=== PATIENT | female | born 1990 | race Caucasian/White ===

== ENCOUNTER 2025-01-05 18:03 | Outpatient (CLI) | payer MEDICAID, SELFPAY | END 2025-01-05 18:04 | disposition home or self-care (01) | LOC: AMB 01-09 15:07 | PROVIDERS: Visit Provider Family Medicine | DX: R07.89 Other chest pain (principal) | CPT/HCPCS: A0425; A0427 ==

== ENCOUNTER 2025-01-05 18:35 | Emergency (ER) | payer MEDICAID, SELFPAY ==
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
--- OUTSIDE RECORDS SUMMARY | 2024-12-11 13:53 | XMS_ITS | Encounter Summary ---
Author Organization [facility] Address [address] [place] [address] Care Team Providers Care Cold Roll Inspector Name Role Phone Preeti Samuel NP Primary Care Provider [phone] Preeti Samuel NP Unavailable Quynh Guerrero MD Unavailable [phone] Quynh Guerrero MD Unavailable [phone] Bradley Villanueva MD Unavailable [phone] Preeti Samuel NP Unavailable Reason for Referral * Diagnostic Imaging Ultrasound (Routine) - Pending Review Specialty Diagnoses / Procedures Referred By Contac t Referred To Contact Radiology. Diagnoses Left inguinal hernia Procedures US Hernia Evaluation Bradley Villanueva MD [address] [place] [address] Phone: tel: fax: Referral ID Status Reason Start Date Expiration Date V isits Requested Visits Authorized [id number] Pending Review 12/09/2024 12/09/2025 1 1 Reason for Visit * Diagnostic Imaging Ultrasound (Routine) - Pending Review Specialty Diagnoses / Procedures Referred By Contac t Referred To Contact Radiology. Diagnoses Left inguinal hernia Procedures US Hernia Evaluation Bradley Villanueva MD [address] [place] [address] Phone: tel: fax: Referral ID Status Reason Start Date Expiration Date V dyan Requested Visits Authorized [id number] Pending Review 12/09/2024 12/09/2025 1 1 Encounter Details Date Type Department Care Team (Latest Contact Info) Description 12/11/2024 1:53 PM CDT - 12/11/2024 11:59 PM CDT Hospital Encounter [facility] [address] [facility] [address] [place] [phone] Bradley Villanueva MD [address] [place] [address] Left inguinal hernia Discharge Disposition: Home or Self Care Social History Tobacco Use Types Packs/Day Years [...] than three times a week 11/20/2024 Attends Denominational Services Not on file 11/20 Active Member of Clubs or Organizations Not on f ile 11/20/2024 Attends Club or Organization Meetings Not on fredy e 11/20/2024 Marital Status Not on file 11/20/2024 PHQ-2 Answer Date Recorded PHQ-2 Score 4 11/20/2024 [facility] Occupat ional Health - Occupational Stress [...] Answer Date Recorded Do you have housing? (Francisca ba is defined as stable permanent housing and does not include staying outside in a car, in a tent, in an abandoned building, in an overnight intermediate, or couch-surfing.) Yes 11/20/2024 Are you worried [...] on file documented as of this encounter Medications at Time of Discharge amphetamine-dextroa mphetamine (ADDERALL XR) 20 MG 24 hr capsule Take 20 mg by mouth every morning 08/01/2023 buPROPion (WELLBUTRIN XL) 150 MG 24 hr tablet Take 150 mg by mouth every morning. cetirizine (ZYRTEC) 10 MG tabletIndications:C hronic idiopathic urticaria Take 1 tablet (10 mg) by mouth daily. 90 tablet 1 11/20/2024 cloNIDine (CATAPRES) 0.1 MG tablet take 1 to 2 tablets by mouth every 6 HouRS as needed for anxiety* 03/09/2023 dextroamphetamine-a mphetamine 20 mg Tab Take 20 mg by mouth 2 times daily AM and at noon 0 07/24/2018 EPINEPHrine (ANY BX GENERIC EQUIV) 0.3 MG/0.3ML injection 2-packIndications:H /O bee sting allergy Inject 0.3 mLs (0.3 mg) into the muscle as needed for anaphylaxis. 2 each 11/20/2024 ketoconazole (NIZORAL) 2 % external creamIndications:Se borrheic dermatitis Apply to affected area on the face twice daily x 10- 14 days 60 g 11/20/2024 mirtazapine (REMERON) 30 MG tabletIndications:A nxiety Take 1 tablet (30 mg) by mouth at bedtime 60 tablet 07/03/2023 norelgestromin-ethi nyl estradiol (ORTHO EVRA) 150-35 MCG/24HR patchIndications:En counter for counseling regarding contraception Remove old patch and apply new patch onto the skin once a week for 12 weeks (84 days). Do not wear patch week 13, then repeat. 12 patch 3 11/20/2024 omeprazole (PRILOSEC) [address] capsuleIndications: Epigastric pain Take 1 capsule (40 mg) by mouth daily 30 capsule 1 07/03/2023 valACYclovir (VALTREX) 1000 mg tabletIndications:H x of cold sores Take 1 tablet every 12 hours x 2 doses. Take at onset of symptoms. Likely to need three times a month. 20 tablet 11/20/2024 documented as of this encounter Plan of Treatment Not on file documented as of this encounter Procedures Procedure Name Priority Date/Time Associated Diagnosis Comments US HERNIA EVALUATION Routine 12/11/2024 2:20 PM CDT Left inguinal hernia documented in this encounter Results * US Hernia Evaluation (12/11/2024 2:20 PM CDT) Anatomical Region Laterality Modality Abdomen/Pelvis Ultrasound 12/11/2024 2:20 PM CDT Impressions 12/12/2024 3:51 PM CDT IMPRESSION: There is a small left inguinal hernia containing fat. The fascial defect measures 1.6 x 1.4 cm. Narrative 12/12/2024 3:51 PM CDT EXAM: US HERNIA EVALUATION LOCATION: [facility] DATE: 12/11/2024 INDICATION: Left inguinal hernia COMPARISON: None. TECHNIQUE: Transabdominal ultrasound of the groin during rest and Valsalva. FINDINGS/ Procedure Note Satish Galvin MD - 12/12/2024 EXAM: US HERNIA EVALUATION LOCATION: [facility] DATE: 12/11/2024 INDICATION: Left inguinal hernia COMPARISON: None. TECHNIQUE: Transabdominal ultrasound of the groin during rest andValsalva. FINDINGS/ IMPRESSION: There is a small left inguinal hernia containing fat. Thefascial defect measures 1.6 x 1.4 cm. us Bradley Villanueva MD IMG US ORDERABLES Final Resul t documented in this encounter Visit Diagnoses Diagnosis Left inguinal hernia Inguinal hernia without mention of obstruction or gangrene, unilateral or unspecified, (not specified as recurrent) documented in this encounter Additional Health Concerns Assessment Noted Time PHQ-9 Depression Total Score: 17 025 9:19 AM CDT documented as of this encounter Care Teams Cold Roll Inspector Relationship Specialty Start Date End Date Preeti Samuel NP [address] [place] [address] PCP - General 04/20/22 Preeti Samuel NP [address] [place] [address] Assigned PCP 01/14/23 Quynh Guerrero MD [address] [place] [address] security alarm installer 08/28/23 Quynh Guerrero MD [address] [address] Assigned OBGYN Provider 08/29/24 Bradley Villanueva MD [address] [place] [address] Physician Surgery 11/27/24 Preeti Samuel NP [address] [address] Nurse Practitioner Internal Medicine 12/02/24 documented as of this encounter
--- OUTSIDE RECORDS SUMMARY | 2024-12-25 15:30 | XMS_ITS | Encounter Summary ---
Author Organization [facility] Address [address] [place] [address] Care Team Providers Care Client Care Specialist Name Role Phone Preeti Samuel NP Primary Care Provider [phone] Preeti Samuel NP Unavailable Quynh Guerrero MD Unavailable [phone] Quynh Guerrero MD Unavailable [phone] Bradley Villanueva MD Unavailable [phone] Preeti Samuel NP Unavailable Bradley Villanueva MD Unavailable [phone] Encounter Details Date Type Department Care Team (Late st Contact Info) Description 12/25/2024 3:30 PM CDT E-Visit [address] [phone] Preeti Samuel NP [address] [place] [address] [phone] Alcohol use disorder, severe, dependence (H) (Primary Dx) Social History Tobacco Use Types Packs/Day Years [...] than three times a week 11/20/2024 Attends Jewish Services Not on file 11/20 Active Member of Clubs or Organizations Not on f ile 11/20/2024 Attends Club or Organization Meetings Not on fredy e 11/20/2024 Marital Status Not on file 11/20/2024 PHQ-2 Answer Date Recorded PHQ-2 Score 4 11/20/2024 [facility] - Occupational Stress [...] in an abandoned building, in an overnight fpc, or couch-surfing.) Yes 11/20/2024 Are you worried [...] on file documented as of this encounter Patient Instructions * Patient Instructions* Preeti Samuel NP - 12/25/2024 3:30 PM CDT Thank you for choosing us for your care. I have placed the below lab(s) for you: No orders of the defined types were placed in this encounter. To schedule your lab appointment, please click the Schedule button in your [employer] Home Page. documented in this encounter Miscellaneous Notes * Telephone Encounter - Preeti Samuel NP - 12/27/2024 7:47 AM CDT E-visit cancelled. Order for requested labs was placed earlier. documented in this encounter Plan of Treatment Not on file documented as of this encounter Visit Diagnoses Diagnosis Alcohol use disorder, severe, dependence (H)- Primary documented in this encounter Additional Health Concerns Assessment Noted Time PHQ-9 Depression Total Score: 17 025 9:19 AM CDT documented as of this encounter Care Teams Client Care Specialist Relationship Specialty Start Date End Date Preeti Samuel NP [address] [address] PCP - General 04/20/22 Preeti Samuel NP [address] [place] [address] [place] [address] Assigned PCP 01/14/23 Quynh Guerrero MD [address] [place] [address] structural metal fabricator apprentice 08/28/23 Quynh Guerrero MD [address] [place] [address] Assigned OBGYN Provider 08/29/24 Bradley Villanueva MD [facility] [place] [address] Physician Surgery 11/27/24 Preeti Samuel NP [address] [place] [address] Nurse Practitioner Internal Medicine 12/02/24 Bradley Villanueva MD [address] [place] [address] Assigned Surgical Provider 12/27/24 documented as of this encounter
[2025-01-05] VITALS (8 sets, daily range): BP systolic 125–145; BP diastolic 91–109; PULSE 98–110; RESP 18–22; TEMP 36.7–37.2; O2SAT 98–99; BMI 16.2
--- NOTE | 2025-01-05 18:50 | CRLHL7_ITS ---
For Patients: As a result of the Cures Act, medical imaging exams and procedure reports are released immediately into your electronic medical record. You may view this report before your referring provider. If you have questions, please contact your health care provider. INDICATION: Chest pain, anxiety TECHNIQUE: Chest radiograph 1 view COMPARISON: None FINDINGS: Mediastinum: The mediastinum is normal in appearance. The heart silhouette is normal in size and morphology. Lung: Both lungs are unremarkable in appearance. No sign of pleural effusion seen. No pneumothorax is identified. Bone and Soft tissue: Unremarkable for age. IMPRESSION: 1. No acute cardiopulmonary disease is seen. Dictated by: Flaco Hart MD @ 01/05/2025 20:22:21 (Electronically Signed)
[2025-01-05] MEDS: 0.9 % SODIUM CHLORIDE 1000 ml 1,000 ML 6000 ML IV (18:55)
[2025-01-05] MEDS: LORazepam 1 MG TABLET PO (18:55)
--- NOTE | 2025-01-05 19:04 | ED_ITS ---
HPI - General Adult General Chief complaint: Anxiety Stated complaint: Chest pain, anxiety Time Seen by Provider: 01/05/25 18:38 History of Present Illness HPI narrative: Patient is a 34-year-old white female who has had trouble with alcohol, and anxiety. 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 She is from [facility]. She has had probably 5 shots of alcohol today. She reports a lot of tremulousness at the graduation constitution party where she was working. She was working hard and felt a little bit off lightheaded. It was sent to the ER that she had chest pain but she denies ever having chest pain. She has had no shortness of breath. She feels tremulous and anxious. She has got a lot of anxiety and a lot of this Mom stems from her boyfriend's ultimatum of if she continues to drink that he has input into the relationship. She does have her boyfriend who can get her home later today. She was brought in by ambulance. She got some IV fluid. Patient denies . Related Data Home Medications ?Medication ?Instructions ?Recorded ?Confirmed clonazepam 0.5 mg tablet 0.5 mg PO .PRN 01/05/25 0608/31 escitalopram oxalate 10 mg tablet 5 mg PO DAILY 01/05/25 (Lexapro) Allergies Allergy/AdvReac Type Severity Reaction Status Date / Time Sulfa (Sulfonamide Allergy Mild Hives Verified 01/05/25 19:25 Antibiotics) Review of Systems Status of ROS: Reports: 6 or more systems reviewed and unremarkable except as noted in History and below [facility] Medical History (Updated 01/05/25 @ 19:28 by Teofilo Ribera RN) Panic attacks ?F41.0 - Panic disorder [episodic paroxysmal anxiety] (ICD-10) Substance induced mood disorder ?F19.94 - Other psychoactive substance use, unspecified with psychoactive substance-induced mood disorder (ICD-10) Alcohol use disorder, moderate, dependence ?F10.20 - Alcohol dependence, uncomplicated (ICD-10) Anxiety ?F41.9 - Anxiety disorder, unspecified (ICD-10) Surgical History (Updated 01/05/25 @ 19:28 by Teofilo Ribera RN) No significant past surgical history Social History Smoking Status: Current every day smoker What tobacco products do you use: cigarettes Second hand tobacco smoke exposure: Yes How often do you have a drink containing alcohol: 4 or more times a week How many standard drinks containing alcohol do you have on a typical day: 5 or 6 How often do you have six or more drinks on one occasion: Daily or almost daily AUDIT-C Alcohol total score: 10 Non-prescribed substance use: denies use Exam Narrative: Exam Narrative: Objective: Patient's vital signs show blood pressure 145/109 temp 99? pulse 110 and regular respiratory 22 and unlabored O2 sat anion 9% on room air in general the patient is in mild distress secondary to anxiety she is tremulous shaky. She is alert orient x3, very pleasant. HEENT is unremarkable no trauma no injury no facial asymmetry no scleral icterus Neck is supple Chest clear Heart rhythm rate and rhythm regular without murmur Abdomen benign soft Extremities within normal limits nontender full range of motion neurologically intact Const: Vital Signs, click to edit/add: Vital Signs - 24 hr 01/05/25 18:43 01/05/25 18:50 01/05/25 19:10 Temperature 99 F Pulse Rate 106 H Pulse Rate [Left P ulse Oximeter] Pulse Rate [Pulse Oximeter] 110 H Respiratory Rate 22 18 Blood Pressure 135/97 H Blood Pressure [Le ft Arm] Blood Pressure [Ri ght Upper Arm] 145/109 H Pulse Oximetry 99 99 99 Oxygen Delivery Me thod Room Air 01/05/25 19:23 Temperature 98.2 F Pulse Rate Pulse Rate [Left P ulse Oximeter] 106 H Pulse Rate [Pulse Oximeter] Respiratory Rate 20 Blood Pressure Blood Pressure [Le ft Arm] 135/97 H Blood Pressure [Ri ght Upper Arm] Pulse Oximetry 99 Oxygen Delivery Me thod Room Air Course Vital Signs Vital signs: Initial Vital Signs Temperature 99 F 01/05/25 18:43 Temperature Source Temporal Artery Scan 01/05/25 18:43 Pulse Rate 110 H 01/05/25 18:43 Respiratory Rate 22 01/05/25 18:43 Blood Pressure 145/109 H 01/05/25 18:43 Blood Pressure Mean 121 H 01/05/25 18:43 Pulse Oximetry 99 01/05/25 18:43 Oxygen Delivery Method Room Air 01/05/25 18:43 Vital Signs Temperature 99 F 01/05/25 18:43 Pulse Rate 110 H 01/05/25 18:43 Respiratory Rate 22 01/05/25 18:43 Blood Pressure 145/109 H 01/05/25 18:43 Pulse Oximetry 99 01/05/25 18:43 Oxygen Delivery Method Room Air 01/05/25 18:43 Temperature 98.2 F 01/05/25 19:23 Pulse Rate 106 H 01/05/25 19:23 Respiratory Rate 20 01/05/25 19:23 Blood Pressure 135/97 H 01/05/25 19:23 Pulse Oximetry 99 01/05/25 19:23 Oxygen Delivery Method Room Air 01/05/25 19:23 Medications Administered Medications: Discontinued Medications Generic Name Dose Route Start Last Admin Trade Name Teressa PRN Reason Stop Dose Admin Sodium Chloride 1,000 mls @ 6,000 mls/hr 01/05/25 19:00 01/05/25 19:22 0.9 % Sodium Chloride 1000 Ml IV 01/05/25 19:09 Infused .Q10M MICHAEL Infusion Lorazepam 1 mg 01/05/25 18:50 01/05/25 18:55 Lorazepam 1 Mg Tablet PO 01/05/25 18:51 1 mg ONCE ONE Administration Medical Decision Making MDM Narrative Medical decision making narrative: 34-year-old white female with probable alcoholism and anxiety. She denied having chest pain but I think it be calderon given her tremulousness and lightheadedness to check her alcohol level, will for completeness will check a D-dimer and troponin, will give 1 L IV fluid, will give 1 mg oral Ativan. Being in the ER she feels better at this time. Will check her electrolytes and labs rehydrate as mentioned above. She feels she is able to cut back on her own drinking and does need support for this. Disposition pending findings above. Will also get a chest x-ray for completeness. For labs and x-rays are reassuring I think a few doses of Ativan as needed for home would be appropriate, continue to cut back on her drinking, follow-up with primary care as needed. Fluids recommended. She will need a ride home. Chest x-ray by my independent review looks unremarkable, EKG shows sinus tachycardia rate 109 beats per minute no acute ST T wave changes by my review as well. Addendum 7:43 p.m.: The patient feels little bit better less anxious less tremulous. She got IV fluid. Her alcohol level is negative. Her troponin is negative her EKG shows normal sinus normal sinus rhythm a little bit tachycardic [address] T wave changes. Chest x-ray looks unremarkable by my review. D-dimer is negative troponins negative. I think the carter patient can be discharged home will send her home with a few Ativan as needed. She can use these sparingly. Recommend a day of rest. Discuss with her family regarding diminishing or alcohol intake. Would recommend she discuss with her primary care doctor regarding anxiety treatment. And monitoring. Lab Data Labs: Lab Results 01/05/25 01/05/25 Range/Units 18:50 18:58 WBC 5.67 (4.50-11.00) K/uL RBC 3.48 L (4.00-5.20) m/uL Hgb 11.8 L (12.0-16.0) gm/dL Hct 35.0 (33.0-51.0) % MCV 101 H (80-100) fL MCH 34 (26-34) pg MCHC 34 (32-36) gm/dL RDW Coeff of Dorota 12.5 (11.5-15.5) % Plt Count 208 (140-440) K/uL Neut % (Auto) 68.0 (42.0-72.0) % Lymph % (Auto) 21.5 (20-44) % [place] % (Auto) 9.0 (0.0-11.0) % Eos % (Auto) 1.1 (0.0-7.0) % Baso % (Auto) 0.2 (0.0-3.0) % Neut # (Auto) 3.86 (1.7-7.0) K/uL Lymph # (Auto) 1.22 (0.90-2.90) K/uL [place] # (Auto) 0.50 (0.00-0.90) K/UL Eos # (Auto) 0.06 (0.00-0.50) K/uL Baso # (Auto) 0.01 (0.00-0.30) K/uL Abs Immat Gran (auto) 0.01 (0.00-0.30) K/uL Imm/Tot Granulo (auto) 0.2 % D-Dimer Quant (PE/DVT) 0.20 (0.00-0.50) ug/ml Sodium 136 (135-149) mmol/L Potassium 3.4 L (3.6-5.1) mmol/L Chloride 100 (96-114) mmol/L Carbon Dioxide 26 (20-32) mmol/L Anion Gap 10 (7-15) mEq/L BUN 12 (5-24) mg/dL Creatinine 1.0 (0.5-1.5) mg/dL Estimated Creat Clear 62.44 Estimated GFR 76 ml/min Glucose 95 (60-115) mg/dL Calcium 8.9 (8.4-10.6) mg/dL Total Bilirubin 0.5 (0.1-1.5) mg/dL Direct Bilirubin 0.3 (0.0-0.5) mg/dL AST 124 H (12-35) U/L ALT 64 H (4-35) U/L Alkaline Phosphatase 89 (40-150) U/L Total Protein 7.4 (6.0-8.3) g/dL Albumin 4.5 (3.3-5.0) g/dL Ethyl Alcohol < 0.01 (0.01-0.03) % POC Troponin I 0.02 (0.01-0.04) ng/ml Discharge Plan Discharge Clinical Impression: Acute anxiety, Alcohol abuse Patient Disposition: Home w/ Parent or Adult Condition: Improved Additional Instructions: Light activity, recommend off work in duties tomorrow, Ativan as needed p.r.n.. Would not take clonazepam for taking Ativan. Continue other medicines at home. Recommend he recheck with her primary care doctor regarding alcohol use and anxiety treatment. Activity Level: Light activity Discharge Diet: Regular Prescriptions: No Action escitalopram oxalate [Lexapro] 10 mg tablet 5 mg PO DAILY clonazepam 0.5 mg tablet 0.5 mg PO .PRN Stand Alone Forms: [employer] Info Instructions
[2025-01-05 19:05] LABS: Basophils Absolute Auto 0.01 K/uL (0.00-0.30); Basophils Percent Auto 0.2 % (0.0-3.0); Eosinophils Absolute Auto 0.06 K/uL (0.00-0.50); Eosinophils Percent Auto 1.1 % (0.0-7.0); Hemoglobin* 11.8 gm/dL (12.0-16.0); Immature Granulocytes Abs Auto 0.01 K/uL (0.00-0.30); Immature Granulocytes Pct Auto 0.2 %; Lymphocytes Absolute Auto 1.22 K/uL (0.90-2.90); Lymphocytes Percent Auto 21.5 % (20-44); Mean Corpuscular HGB Conc 34 gm/dL (32-36); Mean Corpuscular Hemoglobin 34 pg (26-34); Mean Corpuscular Volume 101 fL (80-100); Neutrophils Absolute Auto 3.86 K/uL (1.7-7.0); Platelet Count* 208 K/uL (140-440); RDW Coefficient of Variation % 12.5 % (11.5-15.5); Red Blood Count* 3.48 m/uL (4.00-5.20); White Blood Count* 5.67 K/uL (4.50-11.00)
[2025-01-05 19:06] LABS: Slide Review Reflex No
[2025-01-05 19:17] LABS: Albumin* 4.5 g/dL (3.3-5.0); Chloride* 100 mmol/L (96-114); Sodium* 136 mmol/L (135-149)
[2025-01-05 19:18] LABS: Troponin, Point-of-Care* 0.02 ng/ml (0.01-0.04)
[2025-01-05 19:18] LABS: Potassium* 3.4 mmol/L (3.6-5.1)
[2025-01-05 19:20] LABS: Alanine Aminotransferase* 64 U/L (4-35); Anion Gap 10 mEq/L (7-15); Aspartate Amino Transferase* 124 U/L (12-35); Blood Urea Nitrogen* 12 mg/dL (5-24); Carbon Dioxide* 26 mmol/L (20-32); Est. Creatinine Clearance* 62.44; Estimated Glomerular Filt Rate 76 ml/min; Total Protein* 7.4 g/dL (6.0-8.3)
[2025-01-05 19:21] LABS: Alkaline Phosphatase* 89 U/L (40-150); Bilirubin Direct* 0.3 mg/dL (0.0-0.5); Bilirubin Total* 0.5 mg/dL (0.1-1.5); Calcium* 8.9 mg/dL (8.4-10.6); Glucose* 95 mg/dL (60-115)
[2025-01-05 19:29] LABS: Ethanol* < 0.01 % (0.01-0.03)
--- OUTSIDE RECORDS SUMMARY | 2025-01-05 19:34 | XMS_ITS | Encounter Summary ---
Author Organization [facility] Address [address] [place] [address] Care Team Providers Care Administrative Support Coordinator Name Role Phone Preeti Samuel NP Primary Care Provider [phone] Preeti Samuel NP Unavailable Quynh Guerrero MD Unavailable [phone] Quynh Guerrero MD Unavailable [phone] Quynh Guerrero MD Unavailable [phone] Bradley Villanueva MD Unavailable [phone] Preeti Samuel NP Unavailable Bradley Villanueva MD Unavailable [phone] Encounter Details Date Type Department Care Team (Late st Contact Info) Description 05/22/2023 My[facility] Medical Advice [address] [phone] Stefan Almonte, RN Social History Tobacco Use Types Packs/Day Years Used Date Smoking Tobacco: Every Day Cigarettes Smokeless Tobacco: Never Comments:smokes marijuana Alcohol Use Standard Drinks/Week Comments Yes 45 (1 standard drink = 0.6 oz pu re alcohol) PHQ-2 Answer Date Recorded PHQ-2 Score 6 01/11/2023 Adolescent Education Answer Date Record ed Getting School Help Needed Not on file 04/28 Comments No Sex and Gender Information Value Date Recorded Sex Assigned at Not on file Legal Sex Female 11:44 AM CDT Gender Identity Not on file Sexual Orientation Not on file documented as of this encounter Plan of Treatment Not on file documented as of this encounter Visit Diagnoses Not on filedocumented in this encounter Additional Health Concerns Assessment Noted Time PHQ-9 Depression Total Score: 22 01/11/ 023 4:05 PM CDT documented as of this encounter Care Teams Administrative Support Coordinator Relationship Specialty Start Date End Date Preeti Samuel NP [address] [place] [address] PCP - General 04/20/22 Preeti Samuel NP [address] [place] [address] Assigned PCP 01/14/23 Quynh Guerrero MD [address] [place] [address] 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
--- OUTSIDE RECORDS SUMMARY | 2025-01-05 19:34 | XMS_ITS | Encounter Summary ---
Author Organization [facility] Address [address] [place] [address] Care Team Providers Care Anesthesia Technician Name Role Phone Preeti Samuel NP Primary Care Provider [phone] Preeti Samuel NP Unavailable Quynh Guerrero MD Unavailable [phone] Quynh Guerrero MD Unavailable [phone] Bradley Villanueva MD Unavailable [phone] Preeti Samuel NP Unavailable Encounter Details Date Type Department Care Team (Latest Contact Info) Description 12/09/2024 Travel Social History Tobacco Use Types Packs/Day Years [...] than three times a week 11/20/2024 Attends Bahai Services Not on file 11/20 Active Member of Clubs or Organizations Not on f ile 11/20/2024 Attends Club or Organization Meetings Not on fredy e 11/20/2024 Marital Status Not on file 11/20/2024 PHQ-2 Answer Date Recorded PHQ-2 Score 4 11/20/2024 [facility] - Occupational Stress Questionnaire Answer Date Recorded [...] documented as of this encounter Care Teams Anesthesia Technician Relationship Specialty Start Date End Date Preeti Samuel NP [address] [place] [address] PCP - General 04/20/22 Preeti Samuel NP [address] [place] [address] Assigned PCP 01/14/23 Quynh Guerrero MD [address] [place] [address] 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
--- OUTSIDE RECORDS SUMMARY | 2025-01-05 19:34 | XMS_ITS | Clinical Summary ---
Author Organization [place] Address [address] [place] [address] Care Team Providers Care Linoleum Mechanic Name Role Phone Preeti Samuel NP Primary Care Provider [phone] Preeti Samuel NP Unavailable Quynh Guerrero MD Unavailable [phone] Quynh Guerrero MD Unavailable [phone] Bradley Villanueva MD Unavailable [phone] Preeti Samuel NP Unavailable Bradley Villanueva MD Unavailable [phone] Allergies Active Allergy Reactions Criticality Noted Date Comments Bee Venom Unknown 03/27/2019 Sulfa Antibiotics Anaphylaxis High 03/17/2015 Wheat Unknown 08/15/2018 Medications * This document contains information received from the source organization and may not represent a complete record from that organization. dextroamphetamine- amphetamine 20 mg Tab Take 20 mg by mouth 2 times daily AM and at noon 0 8 Active cloNIDine (CATAPRES) 0.1 MG tablet take 1 to 2 tablets by mouth every 6 HouRS as needed for anxiety* 3 Active mirtazapine (REMERON) 30 MG tabletIndications: Anxiety Take 1 tablet (30 mg) by mouth at bedtime 60 tablet 3 Active omeprazole (PRILOSEC) [address] capsuleIndications :Epigastric pain Take 1 capsule (40 mg) by mouth daily 30 capsule 1 3 Active amphetamine-dextro amphetamine (ADDERALL XR) 20 MG 24 hr capsule Take 20 mg by mouth every morning 3 Active valACYclovir (VALTREX) 1000 mg tabletIndications: Herpes labialis Take 2 tablets (2,000 mg) by mouth 2 times daily for 1 day At first sign of outbreak.Repe at the following day if symptoms are persistent. 12 tablet 1 4 Active buPROPion (WELLBUTRIN XL) 150 MG 24 hr tablet Take 150 mg by mouth every morning. Active norelgestromin-eth inyl estradiol (ORTHO EVRA) 150-35 MCG/24HR patchIndications:E ncounter for counseling regarding contraception Remove old patch and apply new patch onto the skin once a week for 12 weeks (84 days). Do not wear patch week 13, then repeat. 12 patch 3 5 Active cetirizine (ZYRTEC) 10 MG tabletIndications: Chronic idiopathic urticaria Take 1 tablet (10 mg) by mouth daily. 90 tablet 1 5 Active EPINEPHrine (ANY BX GENERIC EQUIV) 0.3 MG/0.3ML injection 2-packIndications: H/O bee sting allergy Inject 0.3 mLs (0.3 mg) into the muscle as needed for anaphylaxis. 2 each 5 Active ketoconazole (NIZORAL) 2 % external creamIndications:S eborrheic dermatitis Apply to affected area on the face twice daily x 10- 14 days 60 g 5 Active valACYclovir (VALTREX) 1000 mg tabletIndications: Hx of cold sores Take 1 tablet every 12 hours x 2 doses. Take at onset of symptoms. Likely to need three times a month. 20 tablet 5 Active Active Problems Problem Noted Date Diagnosed Date Internal hemorrhoid 11/20/2024 Tobacco abuse 11/20/2024 Overview (11/20/2024): Vape Seborrheic dermatitis 08/25/2023 Female infertility 08/24/2023 Assessment & Plan (08/25/2023 1:26 PM FOOD COUNTER WORKER): Cycle Day 3 labs to evaluate ovarian reserve Advised her that partner should have a sperm analysis Referral to [facility]ILLING HOOD OPERATOR for further evaluation/management LUQ abdominal pain 04/03/2023 Overview (04/03/2023): 03/2023- upper endoscopy normal 03/2023- no abnormalities to account for the pain on CT of the abdomen/pelvis Cervical high risk HPV (human papillomavirus) te st positive 04/22/2022 Overview (04/25/2022): She reports a history of positive HPV but I do not have record of when this was, she believes it was before 2014. 03/17/15 NIL Pap, Neg HR HPV 08/15/18 NIL pap 04/18/22 NIL Pap, Neg HR HPV Plan routine screening per provider. Pruritic disorder 04/20/2022 Assessment & Plan (04/20/2022 8:37 AM CDT): Uncertain etiology. No rashes noted on exam. Consider alcohol withdrawal related? We will also repeat a compressive metabolic panel to evaluate hepatic function, cholestatic pruritus seems unlikely given her most recent liver function test. Opioid use related to recent shoulder injury could be another possible etiology. She will trial hydroxyzine 25 mg as needed for itching. Alcohol use disorder, severe, dependence 022 Overview (08/24/2023): Inpatient treatment end of 2022 Assessment & Plan (08/24/2023 1:36 PM FOOD COUNTER WORKER): In remission. Just completed an inpatient program Assessment & Plan (01/13/2023 10:06 AM CDT): She reports 3 months sobriety Assessment & Plan (04/20/2022 8:38 AM CDT): Encourage alcohol treatment program and ongoing follow-up with psychology and psychiatry Anterior shoulder dislocation, initial encounter 01/30/2022 Hypomagnesemia 01/30/2022 Macrocytosis 01/30/2022 Hepatic dysfunction 01/30/2022 Bee sting reaction - large a nd local - not systemic - may or may note be bees 12/02/2015 Ventral hernia - lumb about 8.5 cm above the belly button, just to the left of the midline, about the size of a Jelly Belly. 12/02/2015 Bilateral knee pain 12/02/2015 Anxiety 03/17/2015 Assessment & Plan (04/20/2022 8:38 AM CDT): Clonidine refilled x1 week. She has a request to her psychiatrist for refill of this medication which is managed by psychiatry. Mood disorder 03/17/2015 Assessment & Plan (08/25/2023 1:24 PM FOOD COUNTER WORKER): Depression Screening Follow Up 08/23/2023 5:25 PM PHQ PHQ-9 Total Score 12 Q9: Thoughts of better off /self-harm past 2 weeks Not at all Follow Up Actions Taken Crisis resource information provided in After Visit Summary Referred patient back to current mental health provider. Assessment & Plan (01/13/2023 10:06 AM CDT): Struggling with depression. She denies suicidal ideation, states I don't want to . She is followed by psychiatry. Encouraged her to discuss symptoms with prescriber and consider restarting a depression medication. She has an upcoming appointment ADD (attention deficit disorder) 03/17/2015 HISTORY of recurrent cold sores 03/17/2015 Carpal tunnel syndrome - BOTH wrists - mild 03/07 Resolved Problems Problem Noted Date Diagnosed Date Resolved Date Hip pain, left 08/24/2023 12/20/2023 Assessment & Plan (08/25/2023 1:25 PM FOOD COUNTER WORKER): Referral to PT Seizure-like activity 01/30/20222022 Acute pain of left shoulder 01/30/2022 08/24/2023 Alcohol withdrawal seizure 01/30/2022 0 01/13/2023 HPV in female - previously p ositive HPV testing 03/17/2015 08/15/2018 Encounters Date Type Department Care Team Description 12/31/2024 Results Follow-Up [facility] - Surgical Specialties Service Line [facility] [place] [address] Bradley Villanueva MD 12/25/2024 3:30 PM CDT E-Visit [address] [place] [phone] Preeti Samuel NP Alcohol use disorder, severe, dependence (H) (Primary Dx) 12/25/[address] [place] [phone] Preeti Samuel NP Call Back (Patient has upcoming imaging 2 wks out and is wondering about getting liver and kidney panels done prior to that - Please call and advise ) 12/11/2024 1:53 PM CDT - 12/11/2024 11:59 PM CDT Hospital Encounter [facility] [address] [place] [address] [address] [place] [phone] Bradley Villanueva MD Left inguinal hernia Discharge Disposition: Home or Self Care 12/11/2024 Travel 12/09/2024 4:00 PM CDT Office Visit [address] [phone] Preeti Samuel NP Mariscal, Juan O, MD Left inguinal hernia (Primary Dx); Internal hemorrhoid 12/09/2024 Travel 11/22/2024 MyC Medical Advice [address] [phone] Preeti Samuel NP TMJ (dislocation of temporomandibular joint), initial encounter (Primary Dx) 11/20/2024 1:30 PM CDT Office Visit [address] [place] [phone] Preeti Samuel NP Routine general medical examination at a health care facility (Primary Dx); Internal hemorrhoid; Encounter for counseling regarding contraception; Chronic idiopathic urticaria; Bee sting reaction, undetermined intent, sequela; H/O bee sting allergy; Seborrheic dermatitis; Hx of cold sores; Tobacco abuse; Alcohol use disorder, severe, dependence (H); Episode of recurrent major depressive disorder, unspecified depression episode severity 11/20/2024 Travel from Last 3 Months Immunizations Immunization Administration Dates Next Due DTAP (<7y) 01/29/1996,08/19/1992 DTaP, Unspecified 01/29/1996, 3,07/09/1991,1990,01/31/1991 Flu, Unspecified 06/17/2020, 9,08/15/2018,2014 HIB, Unspecified 03/05/1992, 1,04/26/1991,1990 HPV9 (Gardasil) 11/09/2016 HepB, Unspecified 01/22/2003,09/24/2002,04/16/20 02 Historic Hib Hib-titer 03/05/1992,1990,04/26/1991,1990 Historical DTP/aP 07/09/1991,04/26/1991,01/31/19 91 Influenza Vaccine >6 months,quad, PF 06/17/2020, 06/04/2019,08/15/2018 MMR (MMRII) 04/16/2002,03/05/1992 OPV, trivalent, live 01/29/1996,08/19/18 93,04/26/1991,1990 Poliovirus, inactivated (IPV) 01/29/1996 ,08/19/1992,04/26/1991,1990 TD,PF 7+ (Tenivac) 11/09/2016 TDAP (Adacel,Boostrix) 04/16/2023 Td (Adult), Adsorbed 01/22/2003 Td,adult,historic,unspecified 01/22/2003 Family History Medical History Relation Comments Hypertension Brother 1 Substance Abuse Brother 1 Substance Abuse Brother 2 No Known Problems Father Substance Abuse Maternal Grandfather Other Cancer Maternal Grandmother Multiple My eloma Hyperlipidemia Mother Hypertension Mother Relation Status Comments Brother 1 Alive Brother 2 Alive Father Alive Maternal Grandfather Maternal Grandmother Mother Alive Paternal Grandfather Paternal Grandmother Social History Tobacco Use Types Packs/Day Years Used Date Smoking Tobacco: Some Days Cigarettes 0.2 5 Passive Smoke Exposure: Current Smokeless Tobacco: Current Tobacco Cessation:Ready to Q uit: Not Asked; Counseling Given: Not Answered Comments:The habit comes and goes, I don't [...] than three times a week 11/20/2024 Attends Orthodoxy Services Not on file 11/20 Active Member of Clubs or Organizations Not on f ile 11/20/2024 Attends Club or Organization Meetings Not on fredy e 11/20/2024 Marital Status Not on file 11/20/2024 PHQ-2 Answer Date Recorded PHQ-2 Score 4 11/20/2024 [facility] Occupational Stress Questionnaire Answer [...] Date Recorded Do you have housing? (Francisca g is defined as stable permanent housing [...] on file Sexual Orientation Not on file Last Filed Vital Signs Vital Sign Reading Time Taken Comments Blood Pressure 126/86 12/09/2024 3:59 PM CDT Pulse 102 11/20/2024 1:26 PM CDT Temperature 36.8 C (98.2 F) 12/09/2024 3:59 PM CDT Respiratory Rate 16 11/20/2024 1:26 PM CDT Oxygen Saturation 99% 11/20/2024 1:26 PM CDT Inhaled Oxygen Concentration - - Weight 79.8 kg (176 lb) 12/09/2024 3:59 PM CDT Height 175.3 cm (5' 9) 11/20/2024 1:26 PM CDT Body Mass Index 25.99 11/20/2024 1:26 PM CDT Plan of Treatment Health Maintenance Due Date Last Done Comments ADVANCE CARE PLANNING 1990 DEPRESSION ACTION PLAN 1990 PNEUMOCOCCAL VACCINE: PEDIATRICS (0 to 5 YEARS) AND AT-RISK PATIENTS (6 to 49 YEARS) (1 of 2 - PCV) 2009 ANNUAL REVIEW OF HM ORDERS 09/22/2022 09/22/2021 COVID-19 VACCINE ( season) 2024 NICOTINE/TOBACCO CESSATION COUNSELING Q 1 YR 08/24/2024 08/24/2023, 01/11/2023 INFLUENZA VACCINE (Season Ended) 2025 06/17/2020, 06/17/2020, 06/04/2019, Additional history exists PHQ-9 05/22/2025 11/20/2024, 03/04/2024, 08/24/2023, Additional history exists YEARLY PREVENTIVE VISIT 11/20/2025 11/21/19 25, 08/24/2023, 08/15/2018, Additional history exists HPV TEST 04/18/2027 04/18/2022, 03/17/2015 PAP 04/18/2027 04/18/2022, 04/2019, 03/17/2015 DTAP/TDAP/TD VACCINE (9 - Td or Tdap) 04/16/2033 04/16/2023, 11/09/2016, 01/22/2014, Additional history exists ZOSTER VACCINE (1 of 2) 2040 HEPATITIS B VACCINE Completed 01/22/2003, 09/24/2002, 04/16/2002 HIV SCREENING Completed 02/23/2016 HPV VACCINE Completed 11/09/2016, 11/17/2003 HEPATITIS C SCREENING Discontinued MENINGITIS VACCINE Aged Out No longer eligible based on patient's age to complete this topic Procedures Procedure Name Priority Date/Time Associated Diagnosis Comments US HERNIA EVALUATION Routine 12/11/2024 2:20 PM CDT Left inguinal hernia GYNECOLOGIC CYTOLOGY Routine 04/18/2022 9:34 AM CDT Cervical cancer screening HPV HIGH RISK TYPES DNA CERVICAL Routine 04/18/2022 9:34 AM CDT Cervical cancer screening HIV ANTIGEN ANTIBODY COMBO STAT 02/23/2016 1:42 PM CDT from Last 3 Months or Most Recently Relevant to Health Maintenance Results * US Hernia Evaluation (12/11/2024 2:20 PM CDT) Anatomical Region Laterality Modality Abdomen/Pelvis Ultrasound 12/11/2024 2:20 PM CDT Impressions 12/12/2024 3:51 PM CDT IMPRESSION: There is a small left inguinal hernia containing fat. The fascial defect measures 1.6 x 1.4 cm. Narrative 12/12/2024 3:51 PM CDT EXAM: US HERNIA EVALUATION LOCATION: [facility] DATE: 12/11/2024 INDICATION: Left inguinal hernia COMPARISON: None. TECHNIQUE: Transabdominal ultrasound of the groin during rest and Valsalva. FINDINGS/ Procedure Note Satish Galvin MD - 12/12/2024 EXAM: US HERNIA EVALUATION LOCATION: [facility] DATE: 12/11/2024 INDICATION: Left inguinal hernia COMPARISON: None. TECHNIQUE: Transabdominal ultrasound of the groin during rest andValsalva. FINDINGS/ IMPRESSION: There is a small left inguinal hernia containing fat. Thefascial defect measures 1.6 x 1.4 cm. us Bradley Villanueva MD IMG US ORDERABLES Final Resul t * Pap Screen with HPV - recommended age 30 - 65 years (04/18/2022 9:34 AM CDT) Interpretation Negative for Intraepithelial Lesion or Malignancy (NILM) 04/20/2022 3:25 PM CDT [facility] at 1525 CDT Comment Papanicolaou Test Limitations: Cervical cytology is a screening test with limited sensitivity, and regular screening is critical for cancer prevention. Pap tests are primarily effective for the diagnosis/prevent ion of squamous cell carcinoma, not adenocarcinoma or other cancers. 04/20/2022 3:25 PM CDT [facility] Specimen Adequacy Satisfactory for evaluation, endocervical/ackerman sformation zone component present 04/20/2022 3:25 PM CDT [facility] Clinical Information none 04/20/2022 3:25 PM CDT [facility] LMP/Menopause Date 02/28/2022 04/20/2022 3:25 PM CDT [facility] Reflex Testing Yes regardless of result 04/20/2022 3:25 PM CDT [facility] Previous Abnormal? No 04/20/2022 3:25 PM CDT [facility] Performing Labs The technical component of this testing was completed at [facility] 04/20/2022 3:25 PM CDT [facility] Brushing CERVIX UTERI STRUCTURE / Unknown Non-blood Collection / Unknown 04/18/2022 9:34 AM CDT 04/18/2022 12:33 PM CDT us Preeti WILLIS Final Result [facility] Specialty Lab [address] [facility], Room [address] [place] [address], [facility] [phone] * HPV High Risk Types DNA Cervical (04/18/2022 9:34 AM CDT) Other HR HPV Negative Negative 04/22/2022 7:04 AM CDT [facility] HPV16 DNA Negative Negative 04/22/2022 7:04 AM CDT [facility] HPV18 DNA Negative Negative 04/22/2022 7:04 AM CDT [facility] FINAL DIAGNOSIS This patient's sample is negative for HPV DNA. This test was developed and its performance characteristics determined by the [facility]. It has not been cleared or approved by the FDA. The laboratory is regulated under CLIA as qualified to perform high-complexity testing. This test is used for clinical purposes. It should not be regarded as investigational or for research. METHODOLOGY: The Wang Tracee 4800 system uses automated extraction, simultaneous amplification of HPV (L1 region) and beta-globin, followed by real time detection of fluorescent labeled HPV and beta globin using specific oligonucleotide probes. The test specifically identifies types HPV 16 DNA and HPV 18 DNA while concurrently detecting the rest of the high risk types (31, 33, 35, 39, 45, 51, 52, 56, 58, 59, 66 or 68). COMMENTS: This test is not intended for use as a screening device for woman under age 30 with normal cervical cytology. Results should be correlated with cytologic and histologic findings. Close clinical followup is recommended. 04/22/2022 7:04 AM CDT [facility] Brushing CERVIX UTERI STRUCTURE / Unknown Non-blood Collection / Unknown 04/18/2022 9:34 AM CDT 04/21/2022 9:07 AM CDT us Preeti Samuel NP LAB - BLOOD ORDERABLES Final Res ult [facility] [address], [address] [address], [facility] [phone] * HIV Antigen Antibody Combo (02/23/2016 1:42 PM CDT) [facility] HIV Antigen Antibody Combo Negative Negative 02/23/2016 7:01 PM CDT [facility] Blood specimen (specimen) Venipuncture / Unknown 02/23/2016 1:42 PM CDT 02/23/2016 5:53 PM CDT us Isaiah Hernandez MD LAB - BLOOD ORDERABLE S Final Result [facility] [address] [place] [address], [place] [facility] [address] [place] [address] from Last 3 Months or Most Recently Relevant to Health Maintenance Insurance [facility] [employer] Advance Directives For more information, please contact: [phone] * Full Code (Latest Code Status on File) Date Activated Date Inactivated Comments 01/30/2022 3:49 PM 02/01/2022 2:21 PM All basic an d advanced life-sustaining interventions are performed as appropriate Question Answer Comments Code status determined by: Discussion with rebeka nt/ legal decision maker Care Teams Linoleum Mechanic Relationship Specialty Start Date End Date Preeti Samuel NP [facility] [address] [address] PCP - General 04/20/22 Preeti Samuel NP [address] [place] [address] Assigned PCP 01/14/23 Quynh Guerrero MD [address] [place] [address] computer patternmaker 08/28/23 Quynh Guerrero MD [address] [place] [address] Assigned OBGYN Provider 08/29/24 Bradley Villanueva MD [address] [place] [address] Physician Surgery 11/27/24 Preeti Samuel NP [address] [place] [address] Nurse Practitioner Internal Medicine 12/02/24 Bradley Villanueva MD [address] [place] [address] Assigned Surgical Provider 12/27/24
--- OUTSIDE RECORDS SUMMARY | 2025-01-05 19:34 | XMS_ITS | Encounter Summary ---
Author Organization [place] Address [address] [place] [address] Care Team Providers Care Hot Car Charger Name Role Phone Keshia Mckinley MD Unavailable [phone] Marlen Keita MD Unavailable [phone] Preeti Samuel NP Unavailable No Ref-Primary, Physician Primary Care Provider Patito Raymond MD Unavailable [phone] Preeti Samuel NP Primary Care Provider [phone] Preeti Samuel NP Unavailable Quynh Guerrero MD Unavailable [phone] Quynh Guerrero MD Unavailable [phone] Quynh Guerrero MD Unavailable [phone] Bradley Villanueva MD Unavailable [phone] Preeti Samuel NP Unavailable Bradley Villanueva MD Unavailable [phone] Reason for Visit * Reason Comments Medication Refill Encounter Details Date Type Department Care Team (Late st Contact Info) Description 09/17/2021 Refill [facility] [address] [facility] [address] [place] [phone] Keshia Mckinley MD [address] [place], [place] [phone] Medication Refill Social History Tobacco Use Types Packs/Day Years Used Date Smoking Tobacco: Every Day Cigarettes Smokeless Tobacco: Never Alcohol Use Standard Drinks/Week Comments No 0 (1 standard drink = 0.6 oz pure alcohol) Alcoholic Drinks/day: Stops at 2. Discussed. PHQ-2 Answer Date Recorded PHQ-2 Score 2 08/19/2020 Comments Unknown Sex and Gender Information Value Date Recorded Sex Assigned at Not on file Legal Sex Female 11:44 AM CDT Gender Identity Not on file Sexual Orientation Not on file documented as of this encounter Plan of Treatment Not on file documented as of this encounter Visit Diagnoses Diagnosis Chronic idiopathic urticaria Idiopathic urticaria documented in this encounter Additional Health Concerns Assessment Noted Time PHQ-9 Depression Total Score: 13 021 5:20 PM CDT documented as of this encounter Care Teams Hot Car Charger Relationship Specialty Start Date End Date No Ref-Primary, Physician PCP - General 09/22/21 04/19/22 Preeti Samuel NP [address] [place] [address] PCP - General 04/20/22 Keshia Mckinley MD [address] [place] [id number] Assigned Allergy Provider 02/19/2102/05 Marlen Keita MD [address] [place] [address] Assigned Surgical Provider 02/19/21 12/25/21 Preeti Samuel NP [address] [place] [address] Assigned PCP 08/15/21 09/25/21 Patito Raymond MD [address] [place] [address] [place] [address] Assigned PCP 09/26/21 01/13/23 Preeti Samuel NP [address] [place] [address]. [address] [place] [address] Assigned PCP 01/14/23 Quynh Guererro MD [address] [place] [address] [place] [address] puppet master 08/28/23 Quynh Guerrero MD [address] [place] [address] Assigned OBGYN Provider 11/28/23 Quynh Guerrero MD [address] [place] [address] Assigned OBGYN Provider 08/29/24 Bradley Villanueva MD [address] [place] [address] Physician Surgery 11/27/24 Preeti Samuel NP [address] [place] [address] Nurse Practitioner Internal Medicine 12/02/24 Bradley Villanueva MD [address] [place] [address] Assigned Surgical Provider 12/27/24 documented as of this encounter
--- OUTSIDE RECORDS SUMMARY | 2025-01-05 19:34 | XMS_ITS | Encounter Summary ---
Author Organization [facility] Address [address] [place] [address] Care Team Providers Care Commercial Leasing Agent Name Role Phone Preeti Samuel NP Primary Care Provider [phone] Preeti Samuel NP Unavailable Quynh Guerrero MD Unavailable [phone] Quynh Guerrero MD Unavailable [phone] Quynh Guerrero MD Unavailable [phone] Bradley Villanueva MD Unavailable [phone] Preeti Samuel NP Unavailable Bradley Villanueva MD Unavailable [phone] Encounter Details Date Type Department Care Team (Late st Contact Info) Description 03/24/2023 [facility] [address] [address] [facility] Social History Tobacco Use Types Packs/Day Years Used Date Smoking Tobacco: Every Day Cigarettes Smokeless Tobacco: Never Comments:smokes marijuana Alcohol Use Standard Drinks/Week Comments Yes 45 (1 standard drink = 0.6 oz pu re alcohol) PHQ-2 Answer Date Recorded PHQ-2 Score 6 01/11/2023 Comments No Sex and Gender Information Value Date Recorded Sex Assigned at Not on file Legal Sex Female 11:44 AM CDT Gender Identity Not on file Sexual Orientation Not on file COVID-19 Exposure Response Date Recorded In the last 10 days, have yo u been in contact with someone who was confirmed or suspected to have Coronavirus/COVID-19? No / Unsure 03/22/2023 11:17 AM CDT documented as of this encounter Plan of Treatment Not on file documented as of this encounter Visit Diagnoses Not on filedocumented in this encounter Additional Health Concerns Assessment Noted Time PHQ-9 Depression Total Score: 22 01/11/ 023 4:05 PM CDT documented as of this encounter Care Teams Commercial Leasing Agent Relationship Specialty Start Date End Date Preeti Samuel NP [address] [place] [address] PCP - General 04/20/22 Preeti Samuel NP [address] [place] [address] Assigned PCP 01/14/23 Quynh Guerrero MD [address] [place] [address] interventional physiatrist 08/28/23 Quynh Guerrero MD [address] [place] [address] Assigned OBGYN Provider 11/28/23 Quynh Guerrero MD [address] [place] [address] Assigned OBGYN Provider 08/29/24 Bradley Villanueva MD [address] [place] [address] Physician Surgery 11/27/24 Preeti Samuel NP [address] [place] [address] [place] [address] Nurse Practitioner Internal Medicine 12/02/24 Bradley Villanueva MD [address] [place] [address] Assigned Surgical Provider 12/27/24 documented as of this encounter
--- OUTSIDE RECORDS SUMMARY | 2025-01-05 19:34 | XMS_ITS | Encounter Summary ---
Author Organization [facility] Address [address] [place] [address] Care Team Providers Care Airplane Pilot Chief Name Role Phone Preeti Rodriguez PA-C Primary Care Provider [phone] Encounter Details Date Type Department Care Team (Late st Contact Info) Description 10/18/2012 Outside Hospital External to [facility] CONSULT-H/P-NOTES Social History Tobacco Use Types Packs/Day Years Used Date Smoking Tobacco: Never Alcohol Use Standard Drinks/Week Comments Not Asked 0 (1 standard drink = 0.6 oz pur e alcohol) Comments No Sex and Gender Information Value Date Recorded Sex Assigned at Not on file Legal Sex Female 4:56 AM CDT Gender Identity Not on file Sexual Orientation Not on file documented as of this encounter Plan of Treatment Not on file documented as of this encounter Visit Diagnoses Not on filedocumented in this encounter Additional Health Concerns Infection Onset Date Last Indicated Resolved Time R/O COVID19 08/13/2020 08/13/2020 08/13/2020 7:52 PM TESTER EQUIPMENT documented as of this encounter Care Teams Airplane Pilot Chief Relationship Specialty Start Date End Date Preeti Rodriguez PA-C [address] [facility] [address] [place] [address] PCP - General Physician Supervisor Metal Hanging 02/19/18 documented as of this encounter
--- OUTSIDE RECORDS SUMMARY | 2025-01-05 19:34 | XMS_ITS | Encounter Summary ---
Author Organization [facility] Address [address] [place] [address] Care Team Providers Care Briquette Molder Name Role Phone Keshia Mckinley MD Unavailable [phone] Ref-Primary, Physician Primary Care Provider Patito Raymond MD Unavailable [phone] Preeti Samuel NP Primary Care Provider [phone] Preeti Samuel NP Unavailable Quynh Guerrero MD Unavailable [phone] Quynh Guerrero MD Unavailable [phone] Quynh Guerrero MD Unavailable [phone] Encounter Details Date Type Department Care Team (Late st Contact Info) Description 02/16/2022 Telephone [facility] [address] [place] [phone] Razia Krause, OUTSIDE SALES MANAGER Social History Tobacco Use Types Packs/Day Years Used Date Smoking Tobacco: Former Smokeless Tobacco: Never Comments:smokes marijuana has not smoke in several months Alcohol Use Standard Drinks/Week Comments Yes 45 (1 standard drink = 0.6 oz pu re alcohol) Social Connection and Isolat ion Panel [NHANES] Answer Date Recorded Frequency of Communication w ith Friends and Family Not on file 11/20/2024 How often do you get togethe r with friends or relatives? More than three times a week 11/20/2024 Attends Scientologist Services Not on file 11/20 Active Member of Clubs or Organizations Not on f ile 11/20/2024 Attends Club or Organization Meetings Not on fredy e 11/20/2024 Marital Status Not on file 11/20/2024 PHQ-2 Answer Date Recorded PHQ-2 Score 4 11/20/2024 [facility] - Occupational Stress Questionnaire Answer Date [...] in an abandoned building, in an overnight prison, or couch-surfing.) Yes 11/20/2024 Are you worried [...] suspected to have Coronavirus/COVID-19? No / Unsure 04/03/2023 6:35 AM CDT documented as of this encounter Functional Status * Actual/Potential Lethality (Most Lethal Attempt) Question Answer Date of Assessment Author Actual Lethality/Medical Dam age Code (Most Lethal Attempt) 0 02/18/2022 9:59 AM CDT Vee Krause, OUTSIDE SALES MANAGER Potential Lethality Code (Mo st Lethal Attempt) 1 02/18/2022 9:59 AM CDT KrauseRazia kumar H, OUTSIDE SALES MANAGER Most Lethal Attempt Date [id number] 02/18/2022 9:59 AM CDT Krause, Razia H, OUTSIDE SALES MANAGER * Actual/Potential Lethality (Most Recent Attempt) Question Answer Date of Assessment Author Actual Lethality/Medical Dam age Code (Most Recent Attempt) 0 02/18/2022 9:59 AM CDT Vee Krause H, OUTSIDE SALES MANAGER Potential Lethality Code (Mo st Recent Attempt) 1 02/18/2022 9:59 AM CDT Razia Krause H, OUTSIDE SALES MANAGER * Actual/Potential Lethality (Initial/First Attempt) Question Answer Date of Assessment Author Initial/First Attempt Date [id number] 02/18/2022 9:5 9 AM CDT KrauseRazia kumar H, OUTSIDE SALES MANAGER Actual Lethality/Medical Dam age Code (Initial/First Attempt) 0 02/18/2022 9:59 AM CDT KrauseRazia kumar H, OUTSIDE SALES MANAGER Potential Lethality Code (Initial/First Attempt) 1 02/18/2022 9:59 AM CDT Krause, Moll y H, OUTSIDE SALES MANAGER * Calculated C-SSRS Risk Score (Lifetime/Recent) Answer Date of Assessment Author Moderate Risk 02/18/2022 9:59 AM CDT Krause, Razia H, OUTSIDE SALES MANAGER * Suicidal Ideation Question Answer Date of Assessment Author 1. Wish to be (Lifetime) Yes 02/18/2022 9:59 AM CDT Krause, Razia H, OUTSIDE SALES MANAGER 2. Non-Specific Active Suici juni Thoughts (Lifetime) Yes 02/18/2022 9:59 AM CDT Krause, Razia H, OUTSIDE SALES MANAGER 3. Active Suicidal Ideation with any Methods (Not Plan) Without Intent to Act (Lifetime) Yes 02/18/2022 9:59 AM CDT Krause, Mol ly H, OUTSIDE SALES MANAGER 4. Active Suicidal Ideation with Some Intent to Act, Without Specific Plan (Lifetime) Yes 02/18/2022 9:59 AM CDT Krause, Mol ly H, OUTSIDE SALES MANAGER 5. Active Suicidal Ideation with Specific Plan and Intent (Lifetime) Yes 02/18/2022 9:59 AM CDT Krause, Razia H, OUTSIDE SALES MANAGER 1. Wish to be (Past 1 Month) No 02/18/2022 9:59 AM CDT Krause, Razia H, OUTSIDE SALES MANAGER 2. Non-Specific Active Suici juni Thoughts (Past 1 Month) No 02/18/2022 9:59 AM CDT Krause, Moll y H, OUTSIDE SALES MANAGER 3. Active Suicidal Ideation with any Methods (Not Plan) Without Intent to Act (Past 1 Month) No 02/18/2022 9:59 AM CDT Krause, Razia H, OUTSIDE SALES MANAGER 4. Active Suicidal Ideation with Some Intent to Act, Without Specific Plan (Past 1 Month) No 02/18/2022 9:59 AM CDT Krause, Razia H, OUTSIDE SALES MANAGER 5. Active Suicidal Ideation with Specific Plan and Intent (Past 1 Month) No 02/18/2022 9:59 AM CDT Krause, Razia H, OUTSIDE SALES MANAGER * Intensity of Ideation Question Answer Date of Assessment Author Most Severe Ideation Rating (Lifetime) 5 02/18/2022 9:59 AM CDT Krause, Razia H, OUTSIDE SALES MANAGER Frequency (Lifetime) 3 02/18/2022 9:59 AM C DT Krause, Razia H, OUTSIDE SALES MANAGER Duration (Lifetime) 4 02/18/2022 9:59 AM CD T Krause, Razia H, OUTSIDE SALES MANAGER Controllability (Lifetime) 5 02/18/2022 9:5 9 AM CDT Krause, Razia H, OUTSIDE SALES MANAGER Deterrents (Lifetime) 5 02/18/2022 9:59 AM CDT Krause, Razia H, OUTSIDE SALES MANAGER Reasons for Ideation (Lifetime) 5 9:59 AM CDT Krause, Razia H, OUTSIDE SALES MANAGER Most Severe Ideation Rating (Past 1 Month) 1 02/18/2022 9:59 AM CDT Krause, Razia H, OUTSIDE SALES MANAGER Frequency (Past 1 Month) 1 02/18/2022 9:59 AM CDT Krause, Razia H, OUTSIDE SALES MANAGER Duration (Past 1 Month) 1 02/18/2022 9:59 A M CDT Krause, Razia H, OUTSIDE SALES MANAGER Controllability (Past 1 Month) 1 02/18/2022 9:59 AM CDT Krause, Razia H, OUTSIDE SALES MANAGER Deterrents (Past 1 Month) 1 02/18/2022 9:59 AM CDT Krause, Razia H, OUTSIDE SALES MANAGER Reasons for Ideation (Past 1 Month) 0 02/18/2022 9:59 AM CDT Krause, Razia H, OUTSIDE SALES MANAGER * Suicidal Behavior Question Answer Date of Assessment Author Actual Attempt (Lifetime) Yes 02/18/2022 9:59 AM CDT Krause, Razia H, OUTSIDE SALES MANAGER Total Number of Actual Attem pts (Lifetime) 2 02/18/2022 9:59 AM CDT Krause, Razia H, OUTSIDE SALES MANAGER Has subject engaged in non-suicidal self-injurious behavior? (Lifetime) No 02/18/2022 9:59 AM CDT Krause, Razia H , OUTSIDE SALES MANAGER Interrupted Attempts (Lifetime) Yes 9:59 AM CDT Krause, Razia H, OUTSIDE SALES MANAGER Total Number of Interrupted Attempts (Lifetime) 1 02/18/2022 9:59 AM CDT Krause, Razia H, OUTSIDE SALES MANAGER Aborted or Self-Interrupted Attempt (Lifetime) Yes 02/18/2022 9:59 AM CDT Krause, Razia H, OUTSIDE SALES MANAGER Total Number of Aborted or Self-Interrupted Attempts (Lifetime) 1 02/18/2022 9:59 AM CDT Krause, Razia H, OUTSIDE SALES MANAGER Preparatory Acts or Behavior (Lifetime) No 02/18/2022 9:59 AM CDT Krause, Razia H, OUTSIDE SALES MANAGER Actual Attempt (Past 3 Months) No 02/18/2022 9:59 AM CDT Razia Krause LGSW Interrupted Attempts (Past 3 Months) No 02/18/2022 9:59 AM CDT Razia Krause LGSW Aborted or Self-Interrupted Attempt (Past 3 Months) No 02/18/2022 9:59 AM CDT Cassandra Krause LGSW documented as of this encounter Plan of Treatment Not on file documented as of this encounter Visit Diagnoses Not on filedocumented in this encounter Additional Health Concerns Assessment Noted Time PHQ-9 Depression Total Score: 11 022 9:56 AM CDT documented as of this encounter Care Teams Briquette Molder Relationship Specialty Start Date End Date No Ref-Primary, Physician PCP - General 09/22/21 04/19/22 Preeti Samuel NP [address] [place] [address] PCP - General 04/20/22 Keshia Mckinley MD [address] [place] [address] [place] [id number] Assigned Allergy Provider 02/19/2102/05 Patito Raymond MD [address] [place] [address] Assigned PCP 09/26/21 01/13/23 Preeti Samuel NP [address] [place] [address] Assigned PCP 01/14/23 Quynh Guerrero MD [address] [place] [address] product transfer pumper 08/28/23 Quynh Guerrero MD [address] [address] Assigned OBGYN Provider 11/28/23 Quynh Guerrero MD [address] [address] Assigned OBGYN Provider 08/29/24 documented as of this encounter
--- OUTSIDE RECORDS SUMMARY | 2025-01-05 19:34 | XMS_ITS | Encounter Summary ---
Author Organization [facility] Address [address], [place] [address] Care Team Providers Care Metal Grinder Name Role Phone Preeti Rodriguez PA-C Primary Care Provider [phone] Encounter Details Date Type Department Care Team (Latest Contact Info) Description 07/19/1995 Orders Only Adore Quintanilla APRN, STUDENT SUPPORT COUNSELOR [address] [place] [address] Social History Tobacco Use Types Packs/Day Years Used Date Smoking Tobacco: Never Assessed Comments Unknown Sex and Gender Information Value [...] R/O COVID19 08/13/2020 08/13/2020 08/13/2020 7:52 PM SPORTS COMMENTATOR documented as of this encounter Care Teams Metal Grinder Relationship Specialty Start Date End Date Preeti Rodriguez PA-C [address] [facility] [address] [place] [phone] PCP - General Physician Pot Reliner 02/19/18 documented as of this encounter
--- OUTSIDE RECORDS SUMMARY | 2025-01-05 19:34 | XMS_ITS | Encounter Summary ---
[facility] Address [address], [place] [address] Care Team Providers Care Online Project Manager Name Role Phone Preeti Rodriguez PA-C Primary Care Provider [phone] Encounter Details Date Type Department Care Team (Late st Contact Info) Description 02/22/2017 Correspondence External to External, [place] [address] [facility] Social History Tobacco Use Types Packs/Day Years [...] R/O COVID19 08/13/2020 08/13/2020 08/13/2020 7:52 PM VETERINARY SCIENCE TEACHER documented as of this encounter Care Teams Online Project Manager Relationship Specialty Start Date End Date Preeti Rodriguez PA-C [address] [facility] [address] [place] [phone] PCP - General Physician Juice Standardizer 02/19/18 documented as of this encounter
--- OUTSIDE RECORDS SUMMARY | 2025-01-05 19:34 | XMS_ITS | Clinical Summary ---
Author Organization [facility] Address [address] [place] [address] Care Team Providers Care Lead Developer Name Role Phone Preeti Samuel AGILE PROJECT MANAGER Primary Care Provider [phone] Allergies Active Allergy Reactions Criticality Noted Date Comments Sulfa (Sulfonamide Antibiotics) *Unknown Unknown 06/12/2016 Venom-Honey Bee *Unknown - Follow up needed,Other - Describe In Comment Field 03/27/2019 Wheat Bran *Unknown - Follow up needed,Hives High 08/15/2018 Medications ondansetron (ZOFRAN ODT) 4 mg disintegrating tabletIndications: Nausea Place 1 tablet on the tongue every 8 hours if needed for Nausea/Vomiti ng. 30 tablet 7 Active cloNIDine HCL (CATAPRES) 0.1 mg tablet TAKE ONE TO TWO TABLETS BY MOUTH EVERY 6 HOURS NEEDED FOR ANXIETY Active dextroamphetamine- amphetamine (ADDERALL XR) 20 mg Extended-Release capsule Take 20 mg by mouth. 3 Active EPINEPHrine (EPIPEN) 0.3 mg/0.3 mL auto-injector Inject 0.3 mg intramuscular . 3 Active mirtazapine (REMERON) 30 mg tablet Take 30 mg by mouth. 3 Active venlafaxine (EFFEXOR XR) 37.5 mg Extended-Release capsule TAKE ONE CAPSULE BY MOUTH ONCE DAILY FOR 7 DAYS THEN TAKE TWO CAPSULES BY MOUTH EVERY DAY Active venlafaxine (EFFEXOR XR) 75 mg cp24 Extended-Release capsule Take 75 mg by mouth. 3 Active clotrimazole (LOTRIMIN) 1 % creamIndications:T inea pedis, unspecified laterality Apply topically to affected area(s) two times daily. 85 g 3 Active ARIPiprazole (ABILIFY) 5 mg tablet Take 5 mg by mouth once daily. Active benztropine (COGENTIN) 0.5 mg tablet 4 Active chlorhexidine (PERIDEX) 0.12 % solution Take by mouth. 4 Active escitalopram oxalate (LEXAPRO) 10 mg tablet Take 1 Tablet by mouth once daily. 5 Active fluconazole (DIFLUCAN) 150 mg tablet Take 1 tablet (150 mg) by mouth once for 1 dose.* 4 Active HYDROcodone-acetam inophen (5-325 mg/tablet) Take 1 Tablet by mouth every 6 hours if needed. 4 Active IBU 600 mg tablet Take 600 mg by mouth every 6 hours if needed. 4 Active ketoconazole 2 % cream Apply to affected area on the face twice daily x 10- 14 days 4 Active Anti-Diarrheal 2 mg tablet Take 1 tablet (2 mg) by mouth 4 times daily as needed for diarrhea* Active miSOPROStoL (CYTOTEC) [address] 4 tablets (800 mcg) inside cheek once for 1 dose* 4 Active ondansetron (ZOFRAN) 4 mg tablet Take 1 tablet (4 mg) by mouth every 6 hours as needed for nausea* Active valACYclovir (VALTREX) 1 gram tablet Take 2,000 mg by mouth. 4 Active Active Problems Problem Noted Date Diagnosed Date Alcohol use disorder, moderate, dependence 04/16 Substance induced mood disorder 04/16/2015 Generalized anxiety disorder 04/16/2015 Panic attacks 04/16/2015 Encounters Date Type Department Care Team Description 01/02/2025 11:26 PM CDT - 01/03/2025 3:35 AM CDT Emergency [facility] [address] [place] [address] Simone Alejandro MD Alcoholic intoxication without complication (Primary Dx); Suicidal ideation; Neuropathy, arm, left Discharge Disposition: Rehab Facility or Unit 01/02/2025 Travel from Last 3 Months Immunizations Immunization Administration Dates Next Due DTP 07/09/1991,04/26/1991,01/31/1991 DTaP 01/29/1996, 3,07/09/1991,1990,01/31/1991 Dtap Unspecified Formulation 01/29/1996, 08/19/1992,07/09/1991,1990,01/31/1991 HIB HbOC (HibTITER) 03/05/1992, 1,04/26/1991,1990 HPV 9 (Gardasil 9) 11/09/2016 Hepatitis B (Peds) 01/22/2003,09/24/2002, 002 Hepatitis B, Unspecified 01/22/2003,09/24/2002,0 04/16/2002 Hib Conjugate, Unspecified 03/05/1992,,04/26/1991,1990 Inactivated Polio Vaccine 01/29/1996,,04/26/1991,1990 Influenza Virus, Unspecified 06/17/2020, 06/04/2019,08/15/2018,2014 Influenza, IIV4 06/17/2020,06/04/2019,08/15/2018 MMR 04/16/2002,03/05/1992 Oral Polio Vaccine 01/29/1996, 3,04/26/1991,1990 TD, UNSPECIFIED 01/22/2003 Td (Age >=7 Years) 01/22/2003 Td, Preservative Free (age > = 7 Years) 11/09/2016 Tdap 04/16/2023,11/09/2016 Family History Relation Name Status Comments Father Alive Mother Alive Social History Tobacco Use Types Packs/Day Years Used Date Smoking Tobacco: Some Days Cigarettes Tobacco Cessation:Ready to Q uit: Not Asked; Counseling Given: Not Answered Alcohol Use Standard Drinks/Week Comments Yes 0 (1 standard drink = 0.6 oz pur e alcohol) PHQ-2 Answer Date Recorded PHQ-2 TOTAL SCORE 4 07/21/2023 Interpersonal Safety Answer Date Record ed Are you being hit, kicked, p ushed or yelled at (see row info)? No 01/02/2025 Interpersonal Safety Abuse 12 - 18 Not on file 01/02/2025 Interpersonal Safety Ambulatory Vulnerability No t on file 01/02/2025 Comments No Sex and Gender Information Value Date Recorded Sex Assigned at Not on file Legal Sex Female 12:19 PM CDT Gender Identity Not on file Sexual Orientation Not on file Obstetrics History Last Filed Vital Signs Vital Sign Reading Time Taken Comments Blood Pressure 129/94 01/03/2025 1:03 AM CDT Pulse 97 01/03/2025 1:03 AM CDT Temperature 36.4 C (97.6 F) 01/02/2025 11:29 PM CDT Respiratory Rate 18 01/03/2025 1:03 AM CDT Oxygen Saturation 97% 01/03/2025 1:03 AM CDT Inhaled Oxygen Concentration - - Weight 79.4 kg (175 lb) 01/02/2025 11:29 PM CDT Height 175.3 cm (5' 9) 01/02/2025 11:29 PM CDT Body Mass Index 25.84 01/02/2025 11:29 PM CDT Plan of Treatment Upcoming Encounters Date Type Department Care Team (Late st Contact Info) Description 01/08/2025 7:30 AM CDT Telemedicine [facility] [address] [facility] [address] [place] [address] Patricio Vogel, [facility] [address] [facility] [address] [place], [place] [id number] Health Maintenance Due Date Last Done Comments HIV for age 15-65 2005 Hepatitis C screening for ag e 18-79 2008 Pneumococcal series for age 6-49 (1 of 2 - PCV) 2009 BMI (ht and wt on same day) for age 18+ 10/23/2017 10/23/2016 COVID-19 vaccine series ( - season) 2024 Depression screening for age 12+ 07/21/2024 07/21/20 23, 09/28/2015 Influenza Vaccine (Season Ended) 2025 06/17/2020, 06/17/2020, 06/04/2019, Additional history exists Pap test for age 21-65 04/18/2025 2 (Verified in Care Everywhere or Patient Record) Tetanus booster 04/16/2033 04/16/2023, 04/0 12/2016, 11/09/2016, Additional history exists Hepatitis B series for 19+ Completed 01/22, 01/22/2003, 09/24/2002, Additional history exists Tdap Completed 04/16/2023, 11/09/2016 Insurance [facility] [place] [id number] [place] [id number] Care Teams Lead Developer Relationship Specialty Start Date End Date Preeti Samuel NP [address] [address] PCP - General Nurse Practitioner 07/18/23
--- OUTSIDE RECORDS SUMMARY | 2025-01-05 19:34 | XMS_ITS | Encounter Summary ---
Author Organization [facility] Address [address] [place] [address] Care Team Providers Care Car Repair Supervisor Name Role Phone Preeti Samuel NP Primary Care Provider [phone] Preeti Samuel NP Unavailable Quynh Guerrero MD Unavailable [phone] Quynh Guerrero MD Unavailable [phone] Quynh Guerrero MD Unavailable [phone] Bradley Villanueva MD Unavailable [phone] Preeti Samuel NP Unavailable Bradley Villanueva MD Unavailable [phone] Encounter Details Date Type Department Care Team (Late st Contact Info) Description 03/28/2023 [facility] [address] [address] [facility] Social History Tobacco Use Types Packs/Day Years [...] suspected to have Coronavirus/COVID-19? No / Unsure 03/31/2023 10:57 AM CDT documented as of this encounter Plan of Treatment Not on file documented as of this encounter Visit Diagnoses Not on filedocumented in this encounter Additional Health Concerns Assessment Noted Time PHQ-9 Depression Total Score: 22 01/11/ 023 4:05 PM CDT documented as of this encounter Care Teams Car Repair Supervisor Relationship Specialty Start Date End Date Preeti Samuel NP [address] [place] [address] PCP - General 04/20/22 Preeti Samuel NP [address] [place] [address] Assigned PCP 01/14/23 Quynh Guerrero MD [address] [place] [address] weapons system instrument mechanic 08/28/23 Quynh Guerrero MD [address] [place] [address] Assigned OBGYN Provider 11/28/23 Quynh Guerrero MD [address] [place] [address] Assigned OBGYN Provider 08/29/24 Bradley Villanueva MD [address] [place] [address] Physician Surgery 11/27/24 Preeti Samuel NP [address] [place] [address] [place] [address] Nurse Practitioner Internal Medicine 12/02/24 Bradley Villanueva MD [address] [place] [address] Assigned Surgical Provider 12/27/24 documented as of this encounter
--- OUTSIDE RECORDS SUMMARY | 2025-01-05 19:34 | XMS_ITS | Encounter Summary ---
Author Organization [facility] Address [address], [place] [address] Care Team Providers Care Research Environmental Scientist Name Role Phone Preeti Rodriguez PA-C Primary Care Provider [phone] Encounter Details Date Type Department Care Team (Latest Contact Info) Description 09/13/1995 Orders Only Dora Verma MD [address] [facility] [address] [place] [address] Social History Tobacco Use Types Packs/Day Years [...] R/O COVID19 08/13/2020 08/13/2020 08/13/2020 7:52 PM PROMOTIONS SPECIALIST documented as of this encounter Care Teams Research Environmental Scientist Relationship Specialty Start Date End Date Preeti Rodriguez PA-C [address] [facility] [address] [place] [phone] PCP - General Physician Lead Machinist 02/19/18 documented as of this encounter
--- OUTSIDE RECORDS SUMMARY | 2025-01-05 19:34 | XMS_ITS | Encounter Summary ---
Author Organization [place] Address [address] [place] [address] Care Team Providers Care Metal Lather Name Role Phone Preeti Samuel NP Primary Care Provider [phone] Preeti Samuel NP Unavailable Quynh Guerrero MD Unavailable [phone] Quynh Guerrero MD Unavailable [phone] Bradley Villanueva MD Unavailable [phone] Preeti Samuel NP Unavailable Reason for Referral * Consultation (Routine: Next available opening) - Pending Review Specialty Diagnoses / Procedures Referred By Mony fierro Referred To Contact Otolaryngology Diagnoses TMJ (dislocation of temporomandibular joint), initial encounter Preeti Samuel NP [address] [facility] [address] [place] [address] Phone: tel: fax: [facility] [address] [place] [address] Phone: tel: Referral ID Status Reason Start Date Expiration Date V isits Requested Visits Authorized [id number] Pending Review 12/03/2024 12/03/2025 1 1 Question Answer Reason for Referral: Ear Symptoms Scheduling Instructions: [facility] will call you to coordinate your care as prescribed by the provider. If you don t hear from a pest control service representative within 2 business days, please call [phone]. Additional Information: ear pain. suspect TMD Comments Please be aware that coverage of these services is subject to the terms and limitations of your health insurance plan. Call member services at your health plan with any benefit or coverage questions. [facility] will call you to coordinate your care as prescribed by the provider. If you don t hear from a pest control service representative within 2 business days, please call [phone]. Encounter Details Date Type Department Care Team (Late st Contact Info) Description 11/22/2024 My[facility] Medical Advice [address] [id number] Preeti Samuel NP [address] [id number] TMJ (dislocation of temporomandibular joint), initial encounter (Primary Dx) Social History Tobacco Use Types Packs/Day Years Used Date Smoking Tobacco: Some Days Cigarettes 0.2 5 Passive Smoke Exposure: Current Smokeless Tobacco: Current Comments:The habit comes and goes, I don't feel addicted yet Alcohol Use Standard Drinks/Week Comments Not Currently 45 (1 standard drink = 0.6 oz pu re alcohol) Sober since May 2023 Social Connection and Isolat ion Panel [NHANES] Answer Date Recorded Frequency of Communication w ith Friends and Family Not on file 11/20/2024 How often do you get togethe r with friends or relatives? More than three times a week 11/20/2024 Attends Sabianism Services Not on file 11/20 Active Member of Clubs or Organizations Not on f ile 11/20/2024 Attends Club or Organization Meetings Not on fredy e 11/20/2024 Marital Status Not on file 11/20/2024 PHQ-2 Answer Date Recorded PHQ-2 Score 4 11/20/2024 [facility] [place] of Occupat ional Health - Occupational Stress [...] Answer Date Recorded Do you have housing? (Yousufin g is defined as stable permanent housing [...] as of this encounter Plan of Treatment Scheduled Referrals Name Type Priority Associated Diagnoses Orde r Schedule Adult ENT Janitorial Services Supervisor Referral Referral Routine: Next available opening TMJ (dislocation of temporomandibular joint), initial encounter Expected: 12/03/2024 (Approximate), Expires: 12/03/2025 documented as of this encounter Visit Diagnoses Diagnosis TMJ (dislocation of temporomandibular joint), initial encounter- Primary documented in this encounter Additional Health Concerns Assessment Noted Time PHQ-9 Depression Total Score: 17 025 9:19 AM CDT documented as of this encounter Care Teams Metal Lather Relationship Specialty Start Date End Date Preeti Samuel NP [address] [place] [address] PCP - General 04/20/22 Preeti Samuel NP [address] [place] [address]47[address] Assigned PCP 01/14/23 Quynh Guerrero MD [address] [place] [address] manager gallery 08/28/23 Quynh Guerrero MD [address] [place] [address] Assigned OBGYN Provider 08/29/24 Bradley Villanueva MD [facility] [place] [address] Physician Surgery 11/27/24 Preeti Samuel NP [address] [place] [address] Nurse Practitioner Internal Medicine 12/02/24 documented as of this encounter
--- OUTSIDE RECORDS SUMMARY | 2025-01-05 19:35 | XMS_ITS | Encounter Summary ---
Author Organization [place] Address [address] [place] [address] Care Team Providers Care Sales Manager Name Role Phone Keshia Mckinley MD Unavailable [phone] Suraj Yoo MD Unavailable Unavailabl Marlen Nieves MD Unavailable [phone] Preeti Samuel NP Unavailable Suraj Yoo MD Unavailable Unavailabl e Preeti Samuel NP Unavailable No Ref-Primary, Physician Primary Care Provider Patito Raymond MD Unavailable [phone] Preeti Samuel NP Primary Care Provider [phone] Preeti Samuel NP Unavailable Quynh Guerrero MD Unavailable [phone] Quynh Guerrero MD Unavailable [phone] Quynh Guerrero MD Unavailable [phone] Bradley Villanueva MD Unavailable [phone] Preeti Samuel NP Unavailable Bradley Villanueva MD Unavailable [phone] Encounter Details Date Type Department Care Team (Latest Contact Info) Description 08/19/2020 Historic Results Social History Tobacco Use Types Packs/Day Years Used Date Smoking Tobacco: Never Assessed PHQ-2 Answer Date Recorded PHQ-2 Score 2 [...] documented as of this encounter Care Teams Sales Manager Relationship Specialty Start Date End Date No Ref-Primary, Physician PCP - General 09/22/21 04/19/22 Preeti Samuel NP [address] [place] [address] PCP - General 04/20/22 Keshia Mckinley MD [address] [place] [address] [address] Assigned Allergy Provider 02/19/21 03/04/22 Suraj Yoo MD Assigned PCP 01/20/21 04/24/21 Marlen Keita MD [address] [place] [address] Assigned Surgical Provider 02/19/21 12/25/21 Preeti Samuel NP [address] [place] [address] 284[address] Assigned PCP 04/25/21 06/19/21 Suraj Yoo MD Assigned PCP 06/20/21 08/14/21 Preeti Samuel NP [address] [place] [address] Assigned PCP 08/15/21 09/25/21 Patito Raymond MD [address] [place] [address] 52792 Assigned PCP 09/26/21 01/13/23 Preeti Samuel NP [address] [place] [address] 32317 Assigned PCP 01/14/23 Quynh Guerrero MD [address] [place] [address] wagon driller 08/28/23 Quynh Guerrero MD [address] [place] [address] 25[address] Assigned OBGYN Provider 11/28/23 Quynh Guerrero MD [address] [place] [address] Assigned OBGYN Provider 08/29/24 Bradley Villanueva MD [facility] [place] [address] Physician Surgery 11/27/24 Preeti Samuel NP [address] [place] [address] Nurse Practitioner Internal Medicine 12/02/24 Bradley Villanueva MD [address] [place] [address] Assigned Surgical Provider 12/27/24 documented as of this encounter
--- OUTSIDE RECORDS SUMMARY | 2025-01-05 19:35 | XMS_ITS | Encounter Summary ---
Author Organization [facility] Address [address], [place] [address] Care Team Providers Care Boring Mill Set Up Operator Name Role Phone Preeti Rodriguez PA-C Primary Care Provider [phone] Encounter Details Date Type Department Care Team (Late st Contact Info) Description 03/27/1995 Orders Only [facility] [address] [place] [address] Jackie Scott MD [address] [place], [place] [id number] Social History Tobacco Use Types Packs/Day Years [...] R/O COVID19 08/13/2020 08/13/2020 08/13/2020 7:52 PM ANTIQUE REFINISHER documented as of this encounter Care Teams Boring Mill Set Up Operator Relationship Specialty Start Date End Date Preeti Rodriguez PA-C [address] [facility] [address] [place] [phone] PCP - General Physician Pediatric Rn 02/19/18 documented as of this encounter
--- OUTSIDE RECORDS SUMMARY | 2025-01-05 19:35 | XMS_ITS | Clinical Summary ---
Author Organization [facility] Address [address] [address] Care Team Providers Care Data Coordinator Name Role Phone Preeti Rodriguez PA-C Primary Care Provider [phone] Source Comments You are receiving this document as you are listed as the primary care provider,follow-up provider, or the patient has been referred to you for consultation.This is in compliance with the Medicare and[facility] Hospital[facility] EHR Incentive Program,which states Providers who transition their patient to another setting of careor provider of care or refers their patient to another provider of care shouldprovide summary care record for each transition of care or referral. [facility] Allergies Active Allergy Reactions Criticality Noted Date Comments Bee Venom Other, see comments 03/27/2019 Sulfa Antibiotics Wheat Hives High 08/15/2018 Medications * This document contains information received from the source organization and may not represent a complete record from that organization. EPINEPHrine (EPIPEN) 0.3 MG/0.3ML injection Inject 0.3 mL (0.3 mg) intramuscularl y. 6 Active valACYclovir (VALTREX) 1 g tablet Take 1 tablet every 12 hours x 2 doses. Take at onset of symptoms. Likely to need three times a month. 0 Active cetirizine (ZYRTEC) 10 MG tablet Take 1 Tablet (10 mg) by mouth. 1 Active gabapentin (NEURONTIN) 300 MG capsule Take 1 Capsule (300 mg) by mouth three times a day for 5 days. 15 Capsule 10/04/2022 12:25 PM OPS ANALYST 3 Active omeprazole (PRILOSEC) 40 MG capsule Take 1 Capsule (40 mg) by mouth once daily for 7 days. Take 1 hour before a meal. 7 Capsule 3 Active mirtazapine (REMERON) 30 MG tabletIndications: Major Depressive Disorder Take 1 Tablet (30 mg) by mouth daily at bedtime. Indications: Major Depressive Disorder 7 Tablet 3 Active cloNIDine (CATAPRES) 0.1 MG tabletIndications: Anxiety Take 1 Tablet (0.1 mg) by mouth two times daily as needed. Indications: Anxiety 14 Tablet 3 Active amphetamine-dextro amphetamine (ADDERALL) 20 MG tablet 3 Active ARIPiprazole (ABILIFY) 5 MG tablet Take 1 Tablet (5 mg) by mouth daily. Active amoxicillin (AMOXIL) 500 MG capsule Take by mouth. 4 Active chlorhexidine gluconate (PERIDEX) 0.12 % solution Take by mouth. 4 Active HYDROcodone-acetam inophen (NORCO) 5-325 MG tablet Take 1 Tablet by mouth every 6 hours as needed. 4 Active IBU 600 MG tablet Take 1 Tablet (600 mg) by mouth every 6 hours as needed. 4 Active ondansetron (ZOFRAN-ODT) 8 MG disintegrating tablet 1 Tablet (8 mg) every 8 hours as needed. 4 Active venlafaxine (EFFEXORXR) 150 MG 24 hour release capsule Take 1 Capsule (150 mg) by mouth daily. Active Active Problems Problem Noted Date Diagnosed Date Uncomplicated alcohol withdr awal without perceptual disturbances 05/26/2023 Anxiety 05/15/2017 Pes planus of both feet 01/11/2017 Skin-picking disorder 02/04/2016 Episode of recurrent major depressive disorder 0 01/20/2016 Bee sting reaction 12/02/2015 Ventral hernia 12/02/2015 Bilateral knee pain 12/02/2015 Alcohol use disorder, severe, dependence 015 Generalized anxiety disorder 04/16/2015 Substance induced mood disorder 04/16/2015 Panic attacks 04/16/2015 ADD (attention deficit disorder) 03/17/2015 Carpal tunnel syndrome 03/17/2015 Hx of cold sores 03/17/2015 Anxiety 03/17/2015 Pain in joint, lower leg 05/26/2004 Depo-Provera contraceptive status Resolved Problems Problem Noted Date Diagnosed Date Resolved Date IUD (intrauterine device) in place 06/02/2017 12/10/2019 Overview (06/02/2017): [facility] Case Management 08/11/19 17 10/25/2016 Overview (08/11/2016): Background: Diagnosis: Major Depressive Disorder, Anxiety, Skin Picking disorder, testing for ADHD Current situation: Patient has therapist and finds a barrier with making appointments, remembering and motivation. Member likes her current therapy provider. Member stopped taking her medication for the past couple of months and doesn't feel she needs it right now. Member is working on healthier lifestyles of eating healthier and increasing activity--plans to exercise more. Providers outside of [facility] None Goals/Recommendations: Member wants to improve her mental health and increase her participation in therapy, Improve her healthy lifestyles Outpatient Behavioral Health [employer] Or Student Teacher Information: Kim Thapa MA, [facility] #[phone] Action Plan: Identify Members behavioral health care goals, give health coaching, motivational interviewing and shared decision making, referrals, resources and information given to member to assist her in reaching her goals, collaborate as needed with her providers for care coordination. Gave frequent fitness discount information today. Set incentive goal to follow thru with setting some standing appointments on days/times that work best for her with her therapist and put those appts consistently in her phone reminders to not forget them. Hypertrophy of tonsils with hypertrophy of adenoids 05/26/2004 06/02/2017 Overview (06/02/2017): Tonsillectomy/adenoidectomy in in about 2007 cured problem. Encounters Date Type Department Care Team Description 11/22/2024 11:00 AM CDT Office Visit [facility] [address] [address] Oly Hoang, Dental Exam (Pt would need a new referral for root canal treated tooth on the front. Left deep in the ear pt would notice pain. Saw ear nose throat doctor and they stated the ear looks healthy. Told pt it can possibly be dental related. ); Dental Hygiene from Last 3 Months Immunizations Immunization Administration Dates Next Due 9vHPV (Gardasil 9) 11/09/2016 DTP 07/09/1991,04/26/1991,01/31/1991 DTaP 01/29/1996, 3,07/09/1991,1990,01/31/1991 DTaP, Unspecified Formulation 01/29/1996, 993 HepB Ped/Adol (0-18 yrs) 01/22/2003,09/24/2002,0 04/16/2002 HepB, Unspecified Formulation 01/22/2003, 003,04/16/2002 Hib (HbOC) 03/05/1992, 1,04/26/1991,1990 Hib, Unspecified Formulation 03/05/1992, 07/09/1991,04/26/1991,1990 IPV (Polio) 01/29/1996, 3,04/26/1991,1990 Influenza IIV4 (Quadrivalent ) 0.5mL (00247) 06/17/2020,06/04/2019,08/15/2018 Influenza, Unspecified Formulation 05/11/2015 MMR 04/16/2002,03/05/1992 OPV, Trivalent (Orimune or tOPV) 996,08/19/1992,04/26/1991,1990 Td 01/22/2003 Td (7+ yrs) 01/22/2003 Td, Preservative Free 11/09/2016 Tdap 04/16/2023,11/09/2016 Varicella 01/22/2003(Deferred: Immune by Kelly elam) Social History Tobacco Use Types Packs/Day Years [...] Sign Reading Time Taken Comments Blood Pressure 129/78 05/26/2023 1:53 PM CDT Pulse 89 11/22/2024 11:07 AM CDT Temperature 37.4 C (99.4 F) 05/25/2023 8:46 PM CDT Respiratory Rate 18 05/26/2023 1:53 PM CDT Oxygen Saturation 99% 05/26/2023 1:53 PM CDT Inhaled Oxygen Concentration - - Weight 77.1 kg (170 lb) 06/10/2021 8:29 AM CDT Height 175.3 cm (5' 9) 06/10/2021 8:29 AM CDT Body Mass Index 25.1 06/10/2021 8:29 AM CDT Plan of Treatment Health Maintenance Due Date Last Done Comments Hep C Screening (Preventive Services) 1990 HIV Screening (Preventive Services) 2006 Adult Preventive Visit 2008 Pneumococcal Vaccine (1 of 2 - PCV) 2009 HPV Vaccine (2 - 3-dose series) 12/07/2016 11/09/2016 Cervical Cancer Screening 08/15/2021 08/15/2018 (Com pleted) COVID-19 Vaccine ( season) 2024 Influenza Vaccine (Season Ended) 2025 06/17/2020, 06/04/2019, 08/15/2018, Additional history exists DTaP/Tdap/Td Vaccine (8 - Tdap) 04/16/2033 04/16/2023, 11/09/2016, 11/09/2016, Additional history exists Zoster/Shingles Vaccine (1 of 2) 2040 Hib Vaccine Completed 03/05/1992, 02/06, 07/09/1991, Additional history exists IPV (Polio) Vaccine Completed 01/29/1996, 01/29/1996, 08/19/1992, Additional history exists HepB Vaccine Completed 01/22/2003, 01/05, 09/24/2002, Additional history exists HepA Vaccine Aged Out No longer eligi ble based on patient's age to complete this topic MCV4 Vaccine Aged Out No longer eligi ble based on patient's age to complete this topic Meningococcal B Vaccine Aged Out No l onger eligible based on patient's age to complete this topic Procedures Procedure Name Priority Date/Time Associated Diagnosis Comments 9 FILM-PERIAPICAL FIRST Routine 11/23/19 11:00 AM CDT Routine health maintenance [id number] Routine 11/22/2024 11 :00 AM CDT Routine health maintenance PERIODIC ORAL EVALUATION Routine 11/22/2024 11:00 AM CDT Routine health maintenance PROPHYLAXIS-ADULT RECALL Routine 11/22/2024 11:00 AM CDT Routine health maintenance from Last 3 Months Insurance [facility] [place] [id number] [place] [address] HP CARE PMAP Care Teams Data Coordinator Relationship Specialty Start Date End Date Preeti Rodriguez PA-C [facility] [address] [place] [phone] PCP - General Physician Boilers And Pressure Vessels Inspector 02/19/18
--- OUTSIDE RECORDS SUMMARY | 2025-01-05 19:35 | XMS_ITS | Encounter Summary ---
Author Organization [facility] Address [address] [place] [address] Care Team Providers Care Truck Cleaner Name Role Phone Preeti Rodriguez PA-C Primary Care Provider [phone] Encounter Details Date Type Department Care Team (Latest Contact Info) Description 11/02/1994 Office Visit Dung Mckeon MD [address] [place] [address] Social History Tobacco Use Types Packs/Day Years Used Date Smoking Tobacco: Never Assessed Comments Unknown Sex and Gender Information Value Date Recorded Sex Assigned at Not on file Legal Sex Female 4:56 AM CDT Gender Identity Not on file Sexual Orientation Not on file documented as of this encounter Progress Notes * Dung Mckeon MD - 11/02/1994 12:00 AM CSTS: Allison is here with a history of fever for a couple of days, rash, foul smelling breath. O: She has got typical petechia on the palate, red tonsils, 3+ cervical adenopathy. Her TM on the right was normal. TM on the left was somewhat fluid filled. She has a sandpapery type of rash over her trunk. A: Strep throat with scarlatina. Rapid strep is positive. P: Started on Amoxicillin 250 mg per 5 cc's, 1 tsp TID for the next 10 days. Discussed contagiousness and what to expect with the rash. cc: WORKER documented in this encounter Plan of Treatment Not on file documented as of this encounter Visit Diagnoses Not on filedocumented in this encounter Additional Health Concerns Infection Onset Date Last Indicated Resolved Time R/O COVID19 08/13/2020 08/13/2020 08/13/2020 7:52 PM PIN WORKER documented as of this encounter Care Teams Truck Cleaner Relationship Specialty Start Date End Date Preeti Rodriguez PA-C [address] [facility] [address] [place] [address] PCP - General Physician Plant Physiology Teacher 02/19/18 documented as of this encounter
--- OUTSIDE RECORDS SUMMARY | 2025-01-05 19:35 | XMS_ITS | Encounter Summary ---
Author Organization [facility] Address [address] [place] [address] Care Team Providers Care Director Of Analytical Development Name Role Phone Preeti Rodriguez PA-C Primary Care Provider [phone] Encounter Details Date Type Department Care Team (Latest Contact Info) Description 02/11/1994 Office Visit Dung Mckeon MD [address] [place] [address] Social History Tobacco Use Types Packs/Day Years Used Date Smoking Tobacco: Never Assessed Comments Unknown Sex and Gender Information Value Date Recorded Sex Assigned at Not on file Legal Sex Female 4:56 AM CDT Gender Identity Not on file Sexual Orientation Not on file documented as of this encounter Progress Notes * Dung Mckeon MD - 02/11/1994 12:00 AM CDTS: Allison is here with a two-day history of cold and cough symptoms, now having a low grade fever. Is complaining of left ear pain. O: Her throat looks normal. Mild redness to the posterior pharynx. Her tympanic membranes had normal landmarks and light reflex mobility. Her lungs were clear. Skin was clear. A: Fever, probably viral. P: Watch for signs of Coxsackie virus. Discussed symptoms and treatment. Observe for now. cc: documented in this encounter Plan of Treatment Not on file documented as of this encounter Visit Diagnoses Not on filedocumented in this encounter Additional Health Concerns Infection Onset Date Last Indicated Resolved Time R/O COVID19 08/13/2020 08/13/2020 08/13/2020 7:52 PM BONDING MACHINE SETTER documented as of this encounter Care Teams Director Of Analytical Development Relationship Specialty Start Date End Date Preeti Rodriguez PA-C [address] [facility] [address] [place] [phone] PCP - General Physician Campus Dean 02/19/18 documented as of this encounter
--- OUTSIDE RECORDS SUMMARY | 2025-01-05 19:35 | XMS_ITS | Encounter Summary ---
Author Organization [place] Address [address] [place] [address] Care Team Providers Care Radiology Practitioner Assistant Name Role Phone Preeti Samuel NP Primary Care Provider [phone] Preeti Samuel NP Unavailable Quynh Guerrero MD Unavailable [phone] Quynh Guerrero MD Unavailable [phone] Bradley Villanueva MD Unavailable [phone] Preeti Samuel NP Unavailable Encounter Details Date Type Department Care Team (Latest Contact Info) Description 12/11/2024 Travel Social History Tobacco Use Types Packs/Day [...] than three times a week 11/20/2024 Attends Jain Services Not on file 11/20 Active Member of Clubs or Organizations Not on f ile 11/20/2024 Attends Club or Organization Meetings Not on fredy e 11/20/2024 Marital Status Not on file 11/20/2024 PHQ-2 Answer Date Recorded PHQ-2 Score 4 11/20/2024 [facility] - Occupational Stress Questionnaire Answer Date Recorded [...] in an abandoned building, in an overnight mcfp, or couch-surfing.) Yes 11/20/2024 Are you worried [...] documented as of this encounter Care Teams Radiology Practitioner Assistant Relationship Specialty Start Date End Date Preeti Samuel NP [address] [place] [address] PCP - General 04/20/22 Preeti Samuel NP [address] [place] [address] Assigned PCP 01/14/23 Quynh Guerrero MD [address] [place] [address] merchandise distributor 08/28/23 Quynh Guerrero MD [address] [place] [address] Assigned OBGYN Provider 08/29/24 Bradley Villanueva MD [address] [place] [address] Physician Surgery 11/27/24 Preeti Samuel NP [address] [place] [address] Nurse Practitioner Internal Medicine 12/02/24 documented as of this encounter
--- OUTSIDE RECORDS SUMMARY | 2025-01-05 19:35 | XMS_ITS | Encounter Summary ---
Author Organization [facility] Address [address] [place] [address] Care Team Providers Care Data Collection Technician Name Role Phone Preeti Samuel NP Primary Care Provider [phone] Preeti Samuel NP Unavailable Quynh Guerrero MD Unavailable [phone] Quynh Guerrero MD Unavailable [phone] Bradley Villanueva MD Unavailable [phone] Preeti Samuel NP Unavailable Bradley Villanueva MD Unavailable [phone] Reason for Visit * Reason Onset Date Comments Call Back 12/25/2024 Patient has upco tavo imaging 2 wks out and is wondering about getting liver and kidney panels done prior to that - Please call and advise Encounter Details Date Type Department Care Team (Late st Contact Info) Description 12/25/2024 Telephone [facility] [address] [place] [phone] Preeti Samuel NP [address] [address] Call Back (Patient has upcoming imaging 2 wks out and is wondering about getting liver and kidney panels done prior to that - Please call and advise ) Social History Tobacco Use Types Packs/Day Years [...] than three times a week 11/20/2024 Attends [employer] Services Not on file 11/20 Active Member of Clubs or Organizations Not on f ile 11/20/2024 Attends Club or Organization Meetings Not on fredy e 11/20/2024 Marital Status Not on file 11/20/2024 PHQ-2 Answer Date Recorded PHQ-2 Score 4 11/20/2024 [facility] - Occupational [...] in an abandoned building, in an overnight senior living, or couch-surfing.) Yes 11/20/2024 Are you worried [...] on file documented as of this encounter Miscellaneous Notes * Telephone Encounter - Bernie Hernandez MA - 01/01/2025 12:13 PM CDT LM that lab was order and she can call to schedule. If patient calls back please assist with scheduling * Telephone Encounter - Preeti Samuel NP - 12/26/2024 8:32 AM CDT Ordered. Have pt schedule lab appointment * Telephone Encounter - Maru Bee RMA - 12/25/2024 4:01 PM CDT Call placed regarding what imaging is being completed. Patient is having CT scan of the neck with contrast. Patient has struggle with alcoholism. Patient is having this imaging done at [facility]. Patient is wondering about getting labs for liver and kidney prior to CT scan. Please advise on placing orders * Telephone Encounter - Gerard Elian White - 12/25/2024 3:38 PM CDT Patient Returning Call Reason for call: Patient has upcoming imaging 2 wks out and is wondering about getting liver and kidney panels done prior to that - Please call and advise Information relayed to patient: Message Sent Patient has additional questions: Yes What are your questions/concerns: Patient has upcoming imaging 2 wks out and is wondering about getting liver and kidney panels done prior to that - Please call and advise Could we send this information to you in [employer] or would you prefer to receive a phone call?: Patient would prefer a phone call Okay to leave a detailed message?: Yes at Home number on file [phone] (home) documented in this encounter Plan of Treatment Scheduled Orders Name Type Priority Associated Diagnoses Orde r Schedule Comprehensive metabolic panel (BMP + Alb, Alk Phos, ALT, AST, Total. Bili, TP) Lab Routine Alcohol use disorder, severe, dependence (H) Expected: 12/26/2024 (Approximate), Expires: 12/26/2025 documented as of this encounter Visit Diagnoses Diagnosis Alcohol use disorder, severe, dependence (H)- Primary documented in this encounter Additional Health Concerns Assessment Noted Time PHQ-9 Depression Total Score: 17 025 9:19 AM CDT documented as of this encounter Care Teams Data Collection Technician Relationship Specialty Start Date End Date Preeti Samuel NP [address] [place] [address] PCP - General 04/20/22 Preeti Samuel NP [address] [place] [address] Assigned PCP 01/14/23 Quynh Guerrero MD [address] [place] [address] sheep sorter 08/28/23 Quynh Guerrero MD [address] [address] Assigned OBGYN Provider 08/29/24 Bradley Villanueva MD [address] [place] [address] Physician Surgery 11/27/24 Preeti Samuel NP [address] [address] Nurse Practitioner Internal Medicine 12/02/24 Bradley Villanueva MD [address] [place] [address] Assigned Surgical Provider 12/27/24 documented as of this encounter
--- OUTSIDE RECORDS SUMMARY | 2025-01-05 19:35 | XMS_ITS | Encounter Summary ---
Author Organization [facility] Address [address] [place] [address] Care Team Providers Care Fire Prevention Bureau Captain Name Role Phone Preeti Samuel NP Primary Care Provider [phone] Preeti Samuel NP Unavailable Quynh Guerrero MD Unavailable [phone] Quynh Guerrero MD Unavailable [phone] Quynh Guerrero MD Unavailable [phone] Bradley Villanueva MD Unavailable [phone] Preeti Samuel NP Unavailable Bradley Villanueva MD Unavailable [phone] Encounter Details Date Type Department Care Team (Late st Contact Info) Description 12/12/2023 [facility] Medical Advice [facility] [address] [place] [phone] Kenn Dominguez MD [address] [place] [address] Social History Tobacco Use Types Packs/Day Years Used Date Smoking Tobacco: Some Days Cigarettes 0.2 5 Passive Smoke Exposure: Current Smokeless Tobacco: Current Comments:The habit comes and goes, I don't feel addicted yet Alcohol Use Standard Drinks/Week Comments Not Currently 45 (1 standard drink = 0.6 oz pu re alcohol) Sober since May 2023 PHQ-2 Answer Date Recorded PHQ-2 Score 5 10/24/2023 Adolescent Education Answer Date Record ed Getting School Help Needed Not on file 04/28 Food Insecurity Answer Date Recorded Within the past 12 months, d id you worry that your food would run out before you got money to buy more? Yes 0 08/21/2023 Within the past 12 months, d id the food you bought just not last and you didn t have money to get more? Patient declined 08/21/2023 Housing Stability Answer Date Recorded Do you have housing? (Francisca g is defined as stable permanent housing and does not include staying outside in a car, in a tent, in an abandoned building, in an overnight skilled nursing, or couch-surfing.) Yes 08/21/2023 Are you worried about losing your housing? Yes 08/21/2023 Financial Resource Strain Answer Date R ecorded Within the past 12 months, h ave you or your family members you live with been unable to get utilities (heat, electricity) when it was really needed? No 08/21/2023 Transportation Needs Answer Date Record ed Within the past 12 months, h as lack of transportation kept you from medical appointments, getting your medicines, non-medical meetings or appointments, work, or from getting things that you need? Yes 08/21/2023 Interpersonal Safety Answer Date Record ed Do you feel physically and e motionally safe where you currently live? Yes 08/24/2023 Within the past 12 months, h ave you been hit, slapped, kicked or otherwise physically hurt by someone? No 08/24/2023 Within the past 12 months, h ave you been humiliated or emotionally abused in other ways by your partner or ex-partner? No 08/24/2023 Comments No Sex and Gender Information Value [...] Noted Time PHQ-9 Depression Total Score: 13 024 1:53 PM CDT documented as of this encounter Care Teams Fire Prevention Bureau Captain Relationship Specialty Start Date End Date Preeti Samuel NP [address] [place] [address] PCP - General 04/20/22 Preeti Samuel NP [address] [place] [address] Assigned PCP 01/14/23 Quynh Guerrero MD [address] [place] [address] patient accounts coordinator 08/28/23 Quynh Guerrero MD [address] [place] [address] Assigned OBGYN Provider 11/28/23 Quynh Guerrero MD [address] [place] [address] Assigned OBGYN Provider 08/29/24 Bradley Villanueva MD [address] [place] [address] Physician Surgery 11/27/24 Preeti Samuel NP [address] [place] [address] Nurse Practitioner Internal Medicine 12/02/24 Bradley Villanueva MD [address] [place] [address] Assigned Surgical Provider 12/27/24 documented as of this encounter
--- OUTSIDE RECORDS SUMMARY | 2025-01-05 19:35 | XMS_ITS | Encounter Summary ---
Author Organization [facility] Address [address] [place] [address] Care Team Providers Care Manual Equipment Mechanic Name Role Phone Preeti Rodriguez PA-C Primary Care Provider Encounter Details Date Type Department Care Team (Latest Contact Info) Description 12/22/1993 Office Visit Dung Mckeon MD [id number] [place] [address] Social History Tobacco Use Types Packs/Day Years Used Date Smoking Tobacco: Never Assessed Comments Unknown Sex and Gender Information Value Date Recorded Sex Assigned at Not on file Legal Sex Female 4:56 AM CDT Gender Identity Not on file Sexual Orientation Not on file documented as of this encounter Progress Notes * Dung Mckeon MD - 12/22/1993 12:00 AM CDTS: Allison is a 3 year old in today with a history of mattery eyes intermittently over the last week or two. She comes in today with a concern over a sinus infection. She has had some stomachache, no sore throat or ear pain. O: Does not look sick or ill. Her eyes actually look pretty good. Her TM's have normal landmarks and flexibility. Her throat was mildly reddened, 2+ cervical adenopathy. Her lungs were clear. A: URI. P: Rapid strep test was done and negative. Will treat symptomatically for now. Observe. cc: documented in this encounter Plan of Treatment Not on file documented as of this encounter Visit Diagnoses Not on filedocumented in this encounter Additional Health Concerns Infection Onset Date Last Indicated Resolved Time R/O COVID19 08/13/2020 08/13/2020 08/13/2020 7:52 PM PICK UP documented as of this encounter Care Teams Manual Equipment Mechanic Relationship Specialty Start Date End Date Preeti Rodriguez PA-C [address] [facility] [address] [place] [phone] PCP - General Physician Coat Presser 02/19/18 documented as of this encounter
--- OUTSIDE RECORDS SUMMARY | 2025-01-05 19:35 | XMS_ITS | Encounter Summary ---
Author Organization [facility] Address [address], [place] [address] Care Team Providers Care Able Bodied Watchman Name Role Phone Preeti Rodriguez PA-C Primary Care Provider [phone] Encounter Details Date Type Department Care Team (Latest Contact Info) Description 11/02/1994 Orders Only Dung Mckeon MD [address] [id number] [place] [address] Social History Tobacco Use Types Packs/Day Years [...] R/O COVID19 08/13/2020 08/13/2020 08/13/2020 7:52 PM STRUCTURAL DESIGNER documented as of this encounter Care Teams Able Bodied Watchman Relationship Specialty Start Date End Date Preeti Rodriguez PA-C [address] [facility] [address] [place] [phone] PCP - General Physician Cilnical Scientist 02/19/18 documented as of this encounter
--- OUTSIDE RECORDS SUMMARY | 2025-01-05 19:35 | XMS_ITS | Encounter Summary ---
Author Organization [facility] Address [address] [place] [address]. [place] [address] Care Team Providers Care .Net Architect Name Role Phone Preeti Samuel NP Primary Care Provider [phone] Preeti Samuel NP Unavailable Quynh Guerrero MD Unavailable [phone] Quynh Guerrero MD Unavailable [phone] Bradley Villanueva MD Unavailable [phone] Preeti Samuel NP Unavailable Bradley Villanueva MD Unavailable [phone] Encounter Details Date Type Department Care Team (Late st Contact Info) Description 12/31/2024 Results Follow-Up [facility] - Surgical Specialties Service Line [address] [place] [phone] Bradley Villanueva MD [address] [place] [address] Social History Tobacco Use Types Packs/Day Years [...] than three times a week 11/20/2024 Attends Congregation Services Not on file 11/20 Active Member of Clubs or Organizations Not on f ile 11/20/2024 Attends Club or Organization Meetings Not on fredy e 11/20/2024 Marital Status Not on file 11/20/2024 PHQ-2 Answer Date Recorded PHQ-2 Score 4 11/20/2024 [facility] - Occupational Stress [...] in an abandoned building, in an overnight care home, or couch-surfing.) Yes 11/20/2024 Are you worried [...] documented as of this encounter Care Teams .Net Architect Relationship Specialty Start Date End Date Preeti Samuel NP [address] [place] [address] PCP - General 04/20/22 Preeti Samuel NP [address] [place] [address] Assigned PCP 01/14/23 Quynh Guerrero MD [address] [place] [address] business process expert 08/28/23 Quynh Guerrero MD [address] [place] [address] Assigned OBGYN Provider 08/29/24 Bradley Villanueva MD [address] [place] [address] Physician Surgery 11/27/24 Preeti Samuel NP [address] [facility] [address] [place] [address] Nurse Practitioner Internal Medicine 12/02/24 Bradley Villanueva MD [address] [place] [address] Assigned Surgical Provider 12/27/24 documented as of this encounter
== END 2025-01-05 20:03 | disposition home or self-care (01) ==
PROVIDERS: Emergency Provider Family Medicine
DX: F41.9 Anxiety disorder, unspecified (principal); F10.10 Alcohol abuse, uncomplicated
CPT/HCPCS: 36415; 71045; 80048; 80076; 82077; 84484; 85025; 85379; 93005; 94761; 99284; A9270; J7030